=== PATIENT | male | born 1970 | race Caucasian/White ===

== ENCOUNTER 2020-06-30 07:13 | Outpatient (CLI) | payer BC, SELFPAY ==
--- NOTE | ~2020-06-30 | CT_ITS ---
EXAMINATION: CT chest wo con DATE: 06/30/2020 07:37 INDICATION: Aortic root dilation. TECHNIQUE: Computed tomography (CT) of the chest was performed without intravenous contrast. The dose -length product was 711.16 mGy-cm. Automated exposure control and iterative reconstruction technique were employed. COMPARISON: CT dated 06/19/2019 and 08/01/2018 FINDINGS: The aorta measures 5.1 cm at the sinuses of Valsalva. Midascending aorta measures 3.8 cm. M id descending thoracic aorta at the level of the left pulmonary artery measures 2.7 cm. No significan t pleural or pericardial effusion. Heart size is normal. No thoracic lymphadenopathy. Small hiatal he rnia. There is a 5 mm fissural nodule on the left unchanged, likely benign lymph node. Mild thoracic spondylosis. No acute osseous abnormality. No acute osseous abnormality. IMPRESSION: 1. Slightly increased dilation of the aortic root measuring 5.1 cm compared with 4.9 cm on prior stud y. Reviewed, dictated and finalized at location A. INSPECTOR IMPRESSION: 1. Slightly increased dilation of the aortic root measuring 5.1 cm compared wit h 4.9 cm on prior study.
== END 2020-06-30 07:14 | disposition home or self-care (01) ==
PROVIDERS: PCP Physician Assistant; Visit Provider Internal Medicine Cardiovascular Disease
DX: I77.810 Thoracic aortic ectasia (principal)
CPT/HCPCS: 71250

== ENCOUNTER 2020-11-17 11:29 | Outpatient (CLI) | payer BC, SELFPAY ==
--- NOTE | ~2020-11-17 | CT_ITS ---
EXAMINATION: CT abdomen pelvis wo con DATE: 11/17/2020 12:03 INDICATION: Abdominal bloating TECHNIQUE: Computed tomography (CT) of the abdomen and pelvis was performed without intravenous contr ast. The dose-length product (DLP) was 1325.90 mGy-cm. Automated exposure control and iterative recon struction technique were employed. COMPARISON: 06/19/2019 FINDINGS: Minimal dependent atelectasis is present in the lung bases. The heart size is normal. There is a small sliding hiatal hernia. Within the limitations of noncontrast examination, the liver, sple en, pancreas, and adrenal glands are normal. The gallbladder is surgically absent. There is a 3 mm no nobstructing stone of the right kidney. A 2 mm nonobstructing stone in the left kidney. There is also a 2.7 cm cyst of the right kidney. No pathologically enlarged abdominal or pelvic lymph nodes are id entified. There is no free intraperitoneal gas or evidence of bowel obstruction. The appendix is norm al. There is a greater than normal number of fluid-filled, nondistended small bowel loops. There is m ild lumbar spondylosis. A small fat-containing hernia is noted. IMPRESSION: 1. CT findings suggestive of enteritis. Reviewed, dictated and finalized at location A.
[2020-11-17 12:29] LABS: Basophils Percent Auto 0.3 % (0.2-1.2); Eosinophils Absolute Auto 0.6 K/mm3 (0-0.3); Eosinophils Percent Auto 5.8 % (0-4.4); Hematocrit 49.1 % (42.0-52.0); Hemoglobin 16.9 g/dL (14.0-18.0); Immature Granulocyte Absolute 0.04 K/mm3 (0.00-0.031); Immature Granulocyte Percent A 0.4 % (0-0.5); Lymphocytes Absolute Auto 2.52 K/mm3 (0.9-3.2); Lymphocytes Percent Auto 23.5 % (18.3-44.2); Mean Corpuscular HGB Conc 34.4 g/dl (32-36); Mean Corpuscular Hemoglobin 31.9 pg (26-34); Mean Corpuscular Volume 92.8 fl (80-100); Mean Platelet Volume 8.4 fl (7.4-10.4); Monocytes Absolute Auto 0.8 K/mm3 (0.1-0.6); Monocytes Percent Auto 7.3 % (2.6-8.5); Neutrophils Absolute Auto 6.8 K/mm3 (1.3-6.7); Neutrophils Percent Auto 62.7 % (45.5-73.1); Platelet Count Result 267 k/mm3 (150-375); Red Blood Count 5.29 M/mm3 (4.6-6.20); Red Cell Distribution Width 12.4 % (11.5-14.5); White Blood Count 10.7 K/mm3 (4.5-10.0)
[2020-11-17 12:44] LABS: Alanine Aminotransferase 34 U/L (4-50); Albumin Level 4.5 g/dL (3.5-5.1); Alkaline Phosphatase 77 U/L (38-126); Amylase 77 U/L (30-110); Anion Gap 7 mmol/L (8-16); Aspartate Amino Transferase 37 U/L (17-59); Blood Urea Nitrogen 20 mg/dL (9-20); Calcium 9.4 mg/dL (8.4-10.2); Carbon Dioxide 30 mmol/L (22-30); Chloride 102 mmol/L (98-107); Estimated Glomerular Filt Rate > 60; Glucose 97 mg/dL (75-110); Lipase 103 U/L (23-300); Sodium 139 mmol/L (137-145)
[2020-11-17 12:55] LABS: Troponin I < 0.012 ng/mL (0.000-0.034)
== END 2020-11-17 11:30 | disposition home or self-care (01) ==
PROVIDERS: PCP Physician Assistant; Visit Provider Physician Assistant
DX: R14.0 Abdominal distension (gaseous) (principal); R11.2 Nausea with vomiting, unspecified; N20.0 Calculus of kidney; M47.816 Spondylosis without myelopathy or radiculopathy, lumbar region
CPT/HCPCS: 36415; 74176; 80053; 82150; 83690; 84484; 85025

== ENCOUNTER 2020-12-20 09:32 | Outpatient (CLI) | payer BC, SELFPAY ==
--- NOTE | ~2020-12-20 | CT_ITS ---
EXAMINATION: CT diagnostic chest wo con DATE: 12/20/2020 09:59 INDICATION: Aortic root dilatation TECHNIQUE: Computed tomography (CT) of the chest was performed without intravenous contrast. The dose -length product (DLP) was 516.27 mGy-cm. Automated exposure control and iterative reconstruction tech [employer] were employed. COMPARISON: 06/30/2020, 06/19/2019 FINDINGS: The aorta measures 4.8 cm at the sinuses of Valsalva and 4.0 cm at the sinotubular junction , unchanged from prior examinations. The ascending aorta measures 3.7 cm at the level of the main pul monary artery. No dissection is identified on this noncontrast examination. No pathologically enlarge d thoracic lymph nodes are identified. The heart size is normal. The lungs are free of focal airspace opacities. There is mild dependent atelectasis. The gallbladder is surgically absent. There is no pl eural effusion or pneumothorax. IMPRESSION: 1. Stable aortic root dilatation. Reviewed, dictated and finalized at location B.
== END 2020-12-20 09:33 | disposition home or self-care (01) ==
PROVIDERS: PCP Physician Assistant; Visit Provider Nurse Practitioner Adult Health
DX: I77.810 Thoracic aortic ectasia (principal)
CPT/HCPCS: 71250

== ENCOUNTER 2021-03-10 08:08 | Observation (INO) | payer BC, SELFPAY ==
[2021-03-10] VITALS (21 sets, daily range): BP systolic 89–139; BP diastolic 54–108; PULSE 72–131; RESP 16–22; TEMP 35.8–36.9; O2SAT 95–100; BMI 31.7
--- NOTE | ~2021-03-10 | XR_ITS ---
EXAMINATION: XR chest 2V EXAM DATE: 03/10/2021 08:33 INDICATION: Atrial fibrillation. Shortness of breath. TECHNIQUE: Frontal and lateral projections of the chest obtained and reviewed. Comparison is made to prior examination from 01/26/2018. FINDINGS: The lungs are clear. There are no pleural effusions. The cardiomediastinal silhouette is within normal limits. There is no pneumothorax suspected. The bones and soft tissues are unremarkab le. There are cholecystectomy clips. IMPRESSION: No acute cardiopulmonary findings. Reviewed, dictated and finalized at location D.
--- NOTE | 2021-03-10 08:15 | ECG_ITS ---
Measurements Intervals [place] Rate: 129 P: 109 [place]: 137 QRS: 22 QRSD: 122 T: 37 QT: 287 QTc: 421 Interpretive Statements SINUS TACHYCARDIA INCOMPLETE RIGHT BUNDLE BRANCH BLOCK BASELINE ARTIFACT- III, AVR, AVL, AVF, V1-V3 ABNORMAL ECG Electronically Signed On 03-10-2021 8:43:53 CDT by Oleksandr Coleman D.O.
--- NOTE | 2021-03-10 08:21 | ED.ARRPALP ---
HPI - Arrhythmia/Palpitations General Chief Complaint: Arrhythmia/Palpitations Stated Complaint: elevated hr Time Seen by Provider: 03/10/21 08:19 Source: patient Related Data Allergies Allergy/AdvReac Type Severity Reaction Status Date / Time blue dye Allergy Unknown Hives / Verified 03/26/19 07:04 Red Face red dye Allergy Unknown Hives / Verified 03/26/19 07:04 Red Face yellow dye Allergy Unknown Hives / Verified 03/26/19 07:04 Red Face PROPAFENONE HCL Allergy Intermediate RASH Uncoded 03/26/19 07:04 Course Vital Signs Vital signs: Vital Signs Temperature 36.8 C 03/10/21 08:14 Pulse Rate 129 H 03/10/21 08:14 Respiratory Rate 16 03/10/21 08:14 Blood Pressure 139/97 H 03/10/21 08:14 Pulse Oximetry 99 03/10/21 08:14 Temperature 36.8 C 03/10/21 08:14 Pulse Rate 129 H 03/10/21 08:14 Respiratory Rate 16 03/10/21 08:14 Blood Pressure 139/97 H 03/10/21 08:14 Pulse Oximetry 99 03/10/21 08:14
[2021-03-10 08:31] LABS: Basophils Absolute Auto 0.1 K/mm3 (0.0-0.1); Basophils Percent Auto 0.6 % (0.2-1.2); Eosinophils Absolute Auto 0.4 K/mm3 (0-0.3); Eosinophils Percent Auto 4.4 % (0-4.4); Hematocrit 48.2 % (42.0-52.0); Hemoglobin 16.5 g/dL (14.0-18.0); Immature Granulocyte Absolute 0.03 K/mm3 (0.00-0.031); Immature Granulocyte Percent A 0.4 % (0-0.5); Lymphocytes Absolute Auto 2.21 K/mm3 (0.9-3.2); Lymphocytes Percent Auto 25.8 % (18.3-44.2); Mean Corpuscular HGB Conc 34.2 g/dl (32-36); Mean Corpuscular Hemoglobin 32.2 pg (26-34); Mean Corpuscular Volume 94.1 fl (80-100); Mean Platelet Volume 8.5 fl (7.4-10.4); Monocytes Absolute Auto 0.8 K/mm3 (0.1-0.6); Monocytes Percent Auto 9.3 % (2.6-8.5); Neutrophils Absolute Auto 5.1 K/mm3 (1.3-6.7); Neutrophils Percent Auto 59.5 % (45.5-73.1); Platelet Count Result 335 k/mm3 (150-375); Red Blood Count 5.12 M/mm3 (4.6-6.20); Red Cell Distribution Width 12.2 % (11.5-14.5); White Blood Count 8.6 K/mm3 (4.5-10.0)
--- NOTE | 2021-03-10 08:35 | ED.ARRPALP ---
HPI - Arrhythmia/Palpitations General Chief Complaint: Arrhythmia/Palpitations Stated Complaint: elevated hr Time Seen by Provider: 03/10/21 08:19 Source: patient Mode of arrival: ambulatory Limitations: no limitations History of Present Illness HPI narrative: Patient presents with palpitations started last night, history of A. fib, history of 2 cardiac ablation for atrial fibrillation last 1 was 2013. Patient denies any shortness of breath, chest pain or lightheadedness. Patient is fully vaccinated for COVID-19. Patient denies any fever, chills, nausea, vomiting Related Data Home Medications Medication Instructions Recorded Confirmed Glucosamine Chondroitin 03/10/21 amiloride-hydrochlorothiazide tablet 03/10/21 amitriptyline 03/10/21 atorvastatin 03/10/21 fish,bora,flax oils-om3,6,9no1 cap PO 03/10/21 [[place] 3-6-9] gabapentin 03/10/21 levothyroxine 03/10/21 losartan 03/10/21 omega-3 fatty acids PO 03/10/21 omeprazole 03/10/21 Allergies Allergy/AdvReac Type Severity Reaction Status Date / Time blue dye Allergy Unknown Hives / Verified 03/10/21 08:24 Red Face red dye Allergy Unknown Hives / Verified 03/10/21 08:24 Red Face yellow dye Allergy Unknown Hives / Verified 03/10/21 08:24 Red Face PROPAFENONE HCL Allergy Intermediate RASH Uncoded 03/10/21 08:24 Review of Systems Review of Systems: CONSTITUTIONAL: Denies fever, chills, or sweats. EYES: Denies visual changes, redness, or discharge. ENT: Denies rhinorrhea, congestion, sore throat, or otalgia. CARDIOVASCULAR: Denies chest pain, palpitations, or edema. RESPIRATORY: Denies cough or dyspnea. GASTROINTESTINAL: Denies abdominal pain, nausea, vomiting, or diarrhea. GENITOURINARY: Denies dysuria or hematuria. SKIN: Denies rash or itching. MUSCULOSKELETAL: Denies back pain, joint pain, or myalgia. NEUROLOGIC: Denies headache, numbness, or weakness. PSYCHIATRIC: Denies anxiety or depression. Exam Narrative: General appearance: Well-developed, well-nourished Skin: Normal color Head: Normocephalic, nontraumatic Eyes: Clear conjunctiva ENT: Oropharynx normal, ears normal, nose normal Neck: Supple, nontender Chest and respiratory: Airway patent, no respiratory distress, no accessory muscle use Heart: Irregular irregularity, tachycardia Abdomen: Soft, nontender, no organomegaly, quiet bowel sounds Vascular: Normal peripheral pulses, normal capillary refill. 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 fib with RVR at 129 bpm Labs, chest x-ray, ordered. Cardizem bolus and drip started Differential Diagnosis Differential diagnosis: Likely anxiety, sinus tachycardia, artial fibrillation and artial flutter Lab Data Result diagrams: 03/10/21 08:20 03/10/21 08:20 Labs: Lab Results 03/10/21 03/10/21 03/10/21 Range/Units 08:20 08:20 08:20 WBC 8.6 (4.5-10.0) K/mm3 RBC 5.12 (4.6-6.20) M/mm3 Hgb 16.5 (14.0-18.0) g/dL Hct 48.2
[2021-03-10] MEDS: dilTIAZem HCl INJ 25 MG/5 ML VIAL 10 MG IV PUSH (08:37)
[2021-03-10 08:41] LABS: INR 0.8; Prothrombin Time 11.3 Seconds (11.1-14.7)
[2021-03-10 08:42] LABS: Partial Thromboplastin Time 29.7 SECONDS (22.3-36.8)
[2021-03-10 08:43] LABS: Anion Gap 12 mmol/L (8-16); Blood Urea Nitrogen 29 mg/dL (9-20); Calcium 9.8 mg/dL (8.4-10.2); Carbon Dioxide 23 mmol/L (22-30); Chloride 104 mmol/L (98-107); Estimated CRCL calculation 107 ml/min; Estimated Glomerular Filt Rate > 60; Glucose 109 mg/dL (65-110); Sodium 139 mmol/L (137-145)
[2021-03-10 08:55] LABS: Troponin I < 0.012 ng/mL (0.000-0.034)
--- NOTE | 2021-03-10 09:50 | ECG_ITS ---
Measurements Intervals [place] Rate: 123 P: IL: 0 QRS: 24 QRSD: 100 T: 42 QT: 305 QTc: 437 Interpretive Statements ATRIAL FLUTTER/TACHYCARDIA WITH RAPID VENTRICULAR RESPONSE INCOMPLETE RIGHT BUNDLE BRANCH BLOCK ABNORMAL ECG Electronically Signed On 03-10-2021 12:19:07 CDT by Oleksandr Coleman D.O.
[2021-03-10] MEDS: ENOXAPARIN 120 MG/0.8 ML SYRINGE SUB-Q (10:05)
[2021-03-10] MEDS: LORazepam INJ (*CRX) 2 MG/ML VIAL 1 MG IV PUSH (10:05)
[2021-03-10 11:49] LABS: Troponin I < 0.012 ng/mL (0.000-0.034)
--- NOTE | 2021-03-10 14:12 | PM.CNCAR ---
Assessment and Plan Assessment and plan (1) Paroxysmal atrial fibrillation: Code(s): I48.0 - Paroxysmal atrial fibrillation Status: Acute Assessment and Plan: He is now back in atrial arrhythmia. Sudden onset at 6:20 a.m. this morning (2) Atrial flutter with rapid ventricular response: Code(s): I48.92 - Unspecified atrial flutter Status: Acute Assessment and Plan: Sudden onset at 6:20 a.m. this morning. Unfortunately he just ate lunch immediately before I saw the patient. He has received 1 dose of enoxaparin 1 milligram/kilogram and I am going to start him on Xarelto 20 mg daily. Hold aspirin while on Xarelto. He will be kept NPO after midnight for cardioversion only tomorrow. Will check a basic metabolic panel and magnesium level in a.m.. Diltiazem drip will be continued overnight but is unlikely to be effective. I suspect that the significant recent stresses that he has been dealing with may be the trigger to this latest atrial arrhythmia episode. (3) Essential hypertension: Code(s): I10 - Essential (primary) hypertension Status: Acute Assessment and Plan: Continue his home drug regimen (4) Hypothyroidism: Code(s): E03.9 - Hypothyroidism, unspecified Status: Acute Assessment and Plan: On replacement (5) Aortic root dilatation: Code(s): I77.810 - Thoracic aortic ectasia Status: Acute Assessment and Plan: As an outpatient, Is being closely followed with Q 6 month imaging History of Present Illness History of Present Illness Consult date/time: 03/10/21 14:12 Requesting physician: Jone Ingram MD Consult reason: atrial fibrillation Reason For Visit: A fib with RVR Narrative: Date of service 03/10/2021 Reason consultation: Atrial fibrillation Requesting provider Dr. Ingram History: Patient is a 51-year-old male patient of mine who has a longstanding history of atrial arrhythmias. He also has an ascending aortic aneurysm for which I have also been following. He had a JACINTA guided cardioversion in November 2012. He had atrial fibrillation ablation in 2007. Another cardioversion 2010. Two thousand fourteen he developed symptomatic atrial fibrillation and underwent another cardioversion and discharged on on flecainide and Xarelto. He underwent another AFib ablation in November 2013. He was eventually taken off of his flecainide and Xarelto as his last ablation was successful. He has had in palpitations since that time but nothing sustained. This morning however at 6:20 a.m. he had a abrupt onset of palpitations tachycardia. He was also sweaty and short of breath. He had some tingling in his fingers as well in addition to some dizziness. He has been under more emotional stress lately due to the of his mother as well as some issues with his brother. He stated that he had a few palpitations yesterday evening and seemed a bit more strong and unusual for him but knows that he did not go into atrial fibrillation until 620 this a.m.. He came to the hospital was found to be in atrial flutter with rapid ventricular response. He has been started on diltiazem drip without much benefit and his heart rate. He otherwise denies any chest pain, syncope, presyncope, paroxysmal nocturnal dyspnea, orthopnea, edema. Review of Systems Review of Systems: All systems reviewed & are unremarkable except as noted in HPI and below Constitutional: Constitutional: Denies weakness Eyes: Eyes: Denies blurry vision ENT: Reports Normal hearing present Cardiovascular: Cardiovascular: Denies chest pain and Reports palpitations Respiratory: Respiratory: Reports dyspnea Gastrointestinal: Gastrointestinal: Denies abdominal pain Genitourinary: Genitourinary: Denies dysuria Musculoskeletal: Musculoskeletal: Denies back pain and Denies neck pain Integumentary/Breasts: Skin/Breast: Denies dry skin Neurologic: Denies headache(s) Psychiatric: Psychiatri
--- NOTE | 2021-03-10 15:30 | PM.IMHP ---
H&P: HPI History of Present Illness Date/Time: 03/10/21 15:30 Chief Complaint: Palpitations. Narrative: This is a very pleasant 51-year-old male with history of atrial fibrillation, hypothyroidism, and obstructive sleep apnea presented to the emergency department earlier today via private vehicle for evaluation of palpitations. He has had issues with atrial fibrillation since age 37 and has had 2 cardiac ablations, the most recent being in 2013. Since that time he will have occasional fleeting episodes of atrial fibrillation lasting a few seconds perhaps once a week or so. Last evening and overnight he did have brief palpitations which resolved spontaneously however they have been consistent since about 06:30. Associated symptoms include diaphoresis, shortness of breath, and overwhelming fatigue. He was found to be in atrial flutter with rapid ventricular response and is been started on a Cardizem drip with perhaps some improvement in his rate. Plans are for cardioversion tomorrow if he does not convert overnight. Patient reports increasing stress over the last couple of weeks due to the of his mother and issues with his sibling and he believes that is a contributing factor. He states compliance with his CPAP. TSH was within normal limits relatively recently. No significant alcohol use. He denies syncope, near syncope, chest pain, and pleuritic pain. Review of Systems Review of Systems: 12 systems were reviewed with pertinent positives and negatives as per HPI. No fever or chills. He had abdominal bloating and diarrhea several weeks ago and in fact had an EGD fairly recently which showed evidence of reflux and a short section of Bucio esophagus. Except as document, all other systems were reviewed and are negative. [facility] Past Medical History Medical History (Updated 03/10/21 @ 20:36 by Thelma Looney PA-C) Aortic root dilatation Monitored closely as an outpatient. Essential hypertension History of kidney stones Hypothyroidism Obstructive sleep apnea on CPAP Paroxysmal atrial fibrillation Status post cardiac ablation in 2007 in 2013. Surgical History Surgical History (Updated 03/10/21 @ 20:36 by Thelma Looney PA-C) History of arthroscopy of right knee History of cholecystectomy History of cystoscopy History of sinus surgery History of tonsillectomy History of wisdom tooth extraction Status post LASIK surgery of both eyes Family History Family History Father Arthritis Asthma Malignant neoplasm of prostate Mother Lung cancer Myocardial infarct Manic depression Sibling Hypertension Social History Social History (Updated 03/10/21 @ 20:37 by Thelma Looney PA-C) Social History: The patient lives in [place] with his . They have 1 son who recently moved to [place] for college. Non-smoker. Drinks perhaps 1 alcoholic beverage a week. No illicit substance use. 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 Designates his Sofia as his surrogate decision-maker. CODE STATUS: Full code. Meds Home Medications and Allergies Home Medications Medication Instructions Recorded Confirmed Type Glucosamine Chondroitin 1 tablet DAILY 03/10/21 03/10/21 History amiloride-hydrochlorothiazide 1 tablet DAILY 03/10/21 03/10/21 History amitriptyline 12.5 mg PO HS 03/10/21 03/10/21 History aspirin 325 mg PO DAILY 03/10/21 03/10/21 History atorvastatin 20 mg PO DAILY 03/10/21 03/10/21 History gabapentin 200 mg PO HS 03/10/21 03/10/21 History levothyroxine 150 mcg PO DAILY 03/10/21 03/10/21 History losartan 25 mg PO DAILY 03/10/21 03/10/21 History omega-3 fatty acids 1 cap PO DAILY 03/10/21 03/10/21 History omeprazole 40 mg PO HS 03/10/21 03/10/21 History Allergies Allergy/AdvReac Type Severity Reaction Status Date / Time blue dye Allergy Unknown Hives / Verified 03/10/21 08:24 Red Face red dye Allergy Unknown Hives / Verified 0
--- NOTE | 2021-03-10 16:15 | ADMGEN ---
This patient, Jaison Pineda, was admitted to IMU Room 206-01 at 1125. Patient/family oriented to hospital policies and general routines including ID bracelet, bed and alarms, visiting hours, pain management, procedures, bathroom and other care routines, personal items, smoking policy, room service/diet, and visiting hours. Information on how to activate the Rapid Response Team has been discussed. Patient/Family are encouraged to report perceived risks to care and to ask questions if they do not understand what they are told or what they should do.
[2021-03-10 16:39] LABS: Troponin I < 0.012 ng/mL (0.000-0.034)
[2021-03-10] MEDS: RIVAROXABAN 20 MG TABLET PO (17:13)
[2021-03-10 21:21] LABS: Alanine Aminotransferase 30 U/L (4-50); Albumin Level 4.2 g/dL (3.5-5.1); Alkaline Phosphatase 78 U/L (38-126); Aspartate Amino Transferase 31 U/L (17-59); Bilirubin,Total 0.8 mg/dL (0.2-1.3); Magnesium 1.8 mg/dL (1.6-2.3)
--- NOTE | 2021-03-10 21:30 | PC.NURSE ---
Evening home meds resumed. Patient stated he took meds from home already. Instructed patient to refrain from taking home meds while in the hospital due to risk for double dosing or in case doctors wanted to alter or change medication. Pt agreed.
[2021-03-11] VITALS (12 sets, daily range): BP systolic 104–114; BP diastolic 61–65; PULSE 49–82; RESP 14–16; TEMP 36.4–36.5; O2SAT 98–100
[2021-03-11 00:53] LABS: Free T4 Free Thyroxine 1.03 ng/mL (0.78-2.19)
--- NOTE | 2021-03-11 06:21 | ECG_ITS ---
Measurements Intervals [place] Rate: 55 P: 71 [place]: 177 QRS: 49 QRSD: 108 T: 52 QT: 437 QTc: 420 Interpretive Statements SINUS BRADYCARDIA INCOMPLETE RIGHT BUNDLE BRANCH BLOCK BORDERLINE ECG Electronically Signed On 03-11-2021 14:17:20 CDT by Oleksandr Coleman D.O.
[2021-03-11] MEDS: LEVOTHYROXINE SODIUM 150 MCG TABLET PO (06:36)
--- NOTE | 2021-03-11 08:33 | PM.PNCARD ---
Progress Note: A&P Additional Plan 51-year-old man with: History of atrial fibrillation with 2 previous ablation procedures now with an episode of symptomatic atrial flutter. He has spontaneously converted back to sinus rhythm this morning and is asymptomatic. The plan for today was to perform an electrical cardioversion and discharge him for outpatient follow-up. Obviously the DC cardioversion is no longer indicated. He should be discharged to home on Xarelto and follow up with my partner in the office, Dr. Ramirez. Murali Cobb MD [facility] Subjective Date/time seen: Date of service: 03/11/21 08:33 Interval history: Follow-up visit in this 51-year-old man with: History of atrial arrhythmias atrial fibrillation in the past status post 2 previous catheter ablation procedures. Patient presented with symptomatic atrial flutter this time was placed on intravenous diltiazem. Early this morning his rhythm spontaneously converted back to sinus and the diltiazem has been discontinued. He has now been started on systemic anticoagulation with Xarelto. He is asymptomatic this morning and feels well. Exam Const: General: comfortable and no acute distress HENMT: Mouth: Yes moist mucous membranes Eyes: Sclera: sclerae normal Pupils: Equal, round and reactive pupils present Neck: Neck: supple and no JVD Resp: Effort & Inspection: normal respiratory effort Auscultation: clear to auscultation bilaterally Cardio: Rate: regular rate Rhythm: regular rhythm Other: No murmur no gallop no rub GI: GI Palp: Yes Soft to palpation Auscultation: normal bowel sounds Skin: General skin exam: normal color Neuro: Cognition (Neuro): normal cognition Extrem: General: normal to inspection Objective Data Vital Signs Vital Signs: Vital Signs - 24 hr 03/10/21 08:39 03/10/21 09:09 03/10/21 09:39 Temperature Pulse Rate 128 H 129 H 130 H Respiratory Rate Blood Pressure 118/94 H 132/95 H 119/108 H Pulse Oximetry 03/10/21 09:53 03/10/21 11:06 03/10/21 11:29 Temperature Pulse Rate 122 H 127 H Respiratory Rate 16 16 Blood Pressure 109/79 113/88 Pulse Oximetry 100 100 97 03/10/21 11:57 03/10/21 12:00 03/10/21 14:00 Temperature 35.8 C L Pulse Rate 126 H 131 H 111 H Respiratory Rate 22 H Blood Pressure 118/94 H Pulse Oximetry 98 03/10/21 16:00 03/10/21 18:00 03/10/21 19:57 Temperature 36.9 C 36.4 C Pulse Rate 111 H 98 100 Respiratory Rate 18 16 Blood Pressure 102/63 111/54 L Pulse Oximetry 98 95 03/10/21 20:00 03/10/21 21:10 03/10/21 21:25 Temperature Pulse Rate 98 Respiratory Rate Blood Pressure 89/62 L 101/70 Pulse Oximetry 03/10/21 21:30 03/10/21 21:40 03/10/21 21:56 Temperature Pulse Rate 78 92 Respiratory Rate Blood Pressure 103/68 Pulse Oximetry 98 03/10/21 22:00 03/10/21 23:34 03/11/21 00:00 Temperature 36.6 C Pulse Rate 72 73 76 Respiratory Rate 16 Blood Pressure 98/57 L Pulse Oximetry 97 03/11/21 02:00 03/11/21 02:05 03/11/21 02:14 Temperature Pulse Rate 82 77 Respiratory Rate Blood Pressure 104/61 Pulse Oximetry 98 03/11/21 03:56 03/11/21 04:00 03/11/21 04:31 Temperature 36.5 C Pulse Rate 77 82 75 Respiratory Rate 14 Blood Pressure 105/65 Pulse Oximetry 99 03/11/21 06:00 03/11/21 06:19 03/11/21 06:59 Temperature 36.4 C Pulse Rate 72 49 L 55 L Respiratory Rate 16 Blood Pressure 114/62 Pulse Oximetry 100 Intake/Output Intake/Output: Intake & Output 03/08/21 03/09/21 03/10/21 03/11/21 23:59 23:59 23:59 23:59 Intake Total 580 695 Output Total 850 700 Balance -270 -5 Meds/Results Medications: Active Medications Generic Name Dose Route Start Last Admin Trade Name Terrance PRN Reason Stop Dose Admin Amiloride HCl 5 mg 03/11/21 09:00 Amiloride Hcl 5 Mg Tablet BY MOUTH 04/10/21 08:59 DAILY DAVIE Amitriptyline HCl 12.5 mg 03/10/21 21:00 03/10/21
[2021-03-11] MEDS: LOSARTAN POTASSIUM 25 MG TABLET PO (08:36)
[2021-03-11] MEDS: hydroCHLOROthiazide 25 MG TABLET 50 MG BY MOUTH (08:36)
[2021-03-11] MEDS: ATORVASTATIN 20 MG TABLET PO (08:36)
[2021-03-11] MEDS: aMILoride HCL 5 MG TABLET BY MOUTH (08:36)
[2021-03-11] MEDS: OMEGA 3 POLYUNSAT FATTY ACIDS 1 GM CAP PO (08:37)
--- NOTE | 2021-03-11 10:32 | PM.DS ---
DS: Admitting Diagnosis Discharge Date 03/11/21 Admitting Diagnosis Palpitations DS: Discharge Diagnosis Discharge Diagnosis (1) Atrial flutter with rapid ventricular response: Code(s): I48.92 - Unspecified atrial flutter Status: Acute Assessment and Plan: This is a 51-year-old male with history of atrial fibrillation with multiple ablations in the past, hypothyroidism, and obstructive sleep apnea presented to the emergency department with palpitations. He continues to have a few short episodes of atrial fibrillation lasting only a few seconds, but this episode began at 06:30 and was consistent. He has been under increased stress lately thinking it is causing his Afib. Upon arrival to ER, he was found to be in atrial flutter with rapid ventricular response and is been started on a Cardizem drip with improvement of rate and he converted overnight. He is now in NSR. TSH was within normal limits relatively recently. Cardiology recommended starting Xarelto and discharge to follow up with Dr. Ramirez for further evaluation. Patient understands and agrees with the plan all questions answered. (2) Paroxysmal atrial fibrillation: Code(s): I48.0 - Paroxysmal atrial fibrillation Status: Acute (3) Essential hypertension: Code(s): I10 - Essential (primary) hypertension Status: Acute (4) Hypothyroidism: Code(s): E03.9 - Hypothyroidism, unspecified Status: Acute (5) Obstructive sleep apnea on CPAP: Code(s): G47.33 - Obstructive sleep apnea (adult) (pediatric); Z99.89 - Dependence on other enabling machines and devices Status: Acute DS: Summary Hospital Course Hospital Course: See above Status at Discharge Cognitive/behavioral status at discharge: Stable, improved. Time Spent with Patient Time attestation: Total time spent providing and/or coordinating discharge services: 37 Time spent: Greater than 30 minutes Exam Narrative: General: 51-year-old man sitting up in bed eating breakfast. Appears comfortable. In no acute distress. Skin: No jaundice or cyanosis. Good skin turgor. Neck: Full range of motion. Supple. Respiratory: Lungs are clear to auscultation bilaterally. No bony chest wall tenderness. Cardiovascular: The heart has a regular rate and rhythm without murmur. Lower extremities: No lower extremity edema. Distal pulses are easily palpated. No calf tenderness to palpation. Gastrointestinal: The abdomen is soft, nontender and nondistended with active bowel sounds. Psychiatric: Lucid and oriented. Memory intact. Neurologic: No focal deficits. Speech is clear. No facial drooping. DS: Data Data Completed and Pending Labs on day of discharge: Labs from last 24 hours 03/10/21 03/10/21 03/10/21 21:05 21:05 15:56 Magnesium 1.8 Total Bilirubin 0.8 Direct Bilirubin 0.0 AST 31 ALT 30 Alkaline Phosphatase 78 Troponin I < 0.012 Total Protein 7.0 Albumin 4.2 Free T4 1.03 03/10/21 11:05 Magnesium Total Bilirubin Direct Bilirubin AST ALT Alkaline Phosphatase Troponin I < 0.012 Total Protein Albumin Free T4 Discharge Plan Discharge Attending physician on discharge: Will Cast Consulting providers: Baldemar Ramirez Discharging Clinician: Heike Jerez Anticipated Discharge Date/Time: 03/11/21 10:32 Patient Disposition: Home, Self-Care Activity: as tolerated Diet: heart healthy Discharge Instructions: Heike eJrez PA-C Hospitalist You were admitted into the hospital and found to be in atrial fibrillation with rapid ventricular response. You were placed on an IV diltiazem drip which converted you back into normal sinus rhythm. The cardiology team have evaluated you and feel your stable for discharge at this time. Due to the recurrence of your atrial fibrillation they recommend starting Xarelto
== END 2021-03-11 11:25 | disposition home or self-care (01) ==
LOC: ANHED 09:49 → ANHIMU 10:40
PROVIDERS: Physician Assistant; Admitting Provider Internal Medicine; Emergency Provider Emergency Medicine; PCP Physician Assistant; Visit Provider Internal Medicine
DX: I48.92 Unspecified atrial flutter (principal); I48.0 Paroxysmal atrial fibrillation; R00.2 Palpitations; E03.9 Hypothyroidism, unspecified; G47.33 Obstructive sleep apnea (adult) (pediatric); I10 Essential (primary) hypertension; Z99.89 Dependence on other enabling machines and devices
CPT/HCPCS: 36415; 71046; 80048; 80076; 83735; 84439; 84443; 84484; 85025; 85610; 85730; 93005; 96365; 96366; 96372; 96375; 99285; A9270; G0378; J1650; J2060

== ENCOUNTER 2021-11-23 15:06 | Outpatient (CLI) | payer BC, SELFPAY ==
--- NOTE | ~2021-11-23 | XR_ITS ---
EXAMINATION: XR abdomen/kub 1V INDICATION: Calculus of kidney TECHNIQUE: Supine views of the abdomen were obtained on 2 radiographs. COMPARISON: 08/27/2018 FINDINGS: No urolithiasis is identified. The bowel gas pattern is normal. There is a moderate volume of colonic stool. Surgical clips in the right upper quadrant are likely from prior cholecystectomy. A phlebolith is noted in the left pelvis. IMPRESSION: 1. No urolithiasis identified. Reviewed, dictated and finalized at location F.
== END 2021-11-23 15:07 | disposition home or self-care (01) ==
PROVIDERS: PCP Physician Assistant; Visit Provider Internal Medicine Nephrology
DX: N20.0 Calculus of kidney (principal)
CPT/HCPCS: 74018

== ENCOUNTER 2021-12-13 15:01 | Outpatient (CLI) | payer BC, SELFPAY ==
--- NOTE | ~2021-12-13 | CT_ITS ---
EXAMINATION:CT diagnostic chest wo con DATE: 12/13/2021 15:29 INDICATION: Aortic root dilatation. TECHNIQUE: Computed tomography (CT) of the chest was performed without intravenous contrast. Automate d exposure control and iterative reconstruction technique were employed. The dose-length product (DLP ) was 730.64 mGy-cm. COMPARISON: Chest CT 12/20/2020 FINDINGS: There is mild scarring at the lung apices. There is mild atelectasis bilaterally. There is a 5 mm nodule at left major fissure without change, likely benign. No pleural effusion. There is left atrial enlargement of the heart. No pericardial effusion. There is a small sliding hiatal hernia. Th e aorta measures 4.7 cm at the sinuses of Valsalva, 4.0 cm at the sinotubular junction, 3.6 cm in the mid ascending aorta, 2.6 cm at the aortic isthmus, and 2.5 cm in the mid descending aorta. There is mild thoracic spondylosis. There is mild chronic anterior wedging of T12 vertebral body. IMPRESSION: 1. Aortic root dilatation measuring up to 4.7 cm at the sinuses of Valsalva, stable from 12/20/2020. Reviewed, dictated and finalized at location A. IMPRESSION: 1. Aortic root dilatation measuring up to 4.7 cm at the sinuses of Valsalva, st able from 12/20/2020.
== END 2021-12-13 15:02 | disposition home or self-care (01) ==
PROVIDERS: PCP Physician Assistant; Visit Provider Internal Medicine Cardiovascular Disease
DX: I77.810 Thoracic aortic ectasia (principal); K44.9 Diaphragmatic hernia without obstruction or gangrene; M47.814 Spondylosis without myelopathy or radiculopathy, thoracic region
CPT/HCPCS: 71250

== ENCOUNTER 2022-12-05 17:51 | Outpatient (CLI) | payer BC, SELFPAY ==
--- NOTE | ~2022-12-05 | XR_ITS ---
XR abdomen/kub 1V 12/05/2022 19:17 INDICATION: Kidney stones. TECHNIQUE: KUB COMPARISON: 12/17/2016 FINDINGS: Bowel gas pattern is normal. There are cholecystectomy clips. There is no evidence of free air, mass, organomegaly, ascites or obstruction. No abnormal calculi are seen. There is a left pelvi c phlebolith. The bones appear intact. IMPRESSION: 1: No acute abdominal abnormality identified. Reviewed, dictated and finalized at location L.
== END 2022-12-05 17:52 | disposition home or self-care (01) ==
LOC: ANHIMG 17:54
PROVIDERS: PCP Physician Assistant; Visit Provider Internal Medicine Nephrology
DX: G47.33 Obstructive sleep apnea (adult) (pediatric) (principal); I10 Essential (primary) hypertension; N20.0 Calculus of kidney
CPT/HCPCS: 74018

== ENCOUNTER 2023-01-02 14:27 | Outpatient (CLI) | payer BC, SELFPAY ==
--- NOTE | ~2023-01-02 | CT_ITS ---
EXAMINATION: CT diagnostic chest wo con DATE: 01/02/2023 15:00 INDICATION: Aortic root dilatation TECHNIQUE: Computed tomography (CT) of the chest was performed without intravenous contrast. The dose -length product (DLP) was 534.10 mGy-cm. Automated exposure control and iterative reconstruction tech [employer] were employed. COMPARISON: 12/13/2021 FINDINGS: The aorta measures 4.7 cm at the sinuses of Valsalva and 3.7 cm at the level of the main pu lmonary artery. There is mild dependent atelectasis. No pleural effusion or pneumothorax. No patholog ically enlarged thoracic lymph nodes are identified. The heart size is normal. Changes of cholecystec stella are noted. There is mild thoracic spondylosis. IMPRESSION: 1. Stable aortic root dilatation measuring up to 4.7 cm at the sinuses of Valsalva. Reviewed, dictated and finalized at location B. IMPRESSION: 1. Stable aortic root dilatation measuring up to 4.7 cm at the sinuses of Valsa lva.
== END 2023-01-02 14:28 | disposition home or self-care (01) ==
PROVIDERS: PCP Physician Assistant; Visit Provider Internal Medicine Cardiovascular Disease
DX: I77.810 Thoracic aortic ectasia (principal)
CPT/HCPCS: 71250

== ENCOUNTER → 2023-07-22 17:13 | Outpatient (CLI) | payer BC, SELFPAY ==
--- NOTE | ~2023-07-22 | XR_ITS ---
EXAMINATION: XR chest 2V Exam Date/Time: 07/22/2023 17:15 MEAT LUGGER HISTORY: COUGH, HX OF TWO HEART ABLASION SURGERY Comparison: 03/10/2021. RESULT: Lines, tubes, and devices: None. Lungs and pleura: Clear. Cardiomediastinal silhouette: Stable. Other: No acute osseous or upper abdominal finding. IMPRESSION: No acute cardiopulmonary process. Reviewed, dictated and finalized at location K. LUGGER
== END ==
PROVIDERS: PCP Physician Assistant; Visit Provider Physician Assistant
DX: R05.9 Cough, unspecified (principal)
CPT/HCPCS: 71046

== ENCOUNTER 2023-12-30 15:26 | Outpatient (CLI) | payer BC, SELFPAY ==
--- NOTE | ~2023-12-30 | XR_ITS ---
EXAMINATION: XR abdomen/kub 1V DATE: 12/30/2023 15:43 INDICATION: Kidney stone. TECHNIQUE: A supine view of the abdomen on 2 radiographs was obtained. COMPARISON: Abdomen radiograph 12/05/2022, CT abdomen and pelvis 12/18/2020 FINDINGS: There are no dilated loops of bowel. There is a large volume of stool in the colon. Surgica l clips in the right upper quadrant are likely from cholecystectomy. There is a phlebolith in left pe lvis. There is no visible urolithiasis. IMPRESSION: 1. No visible urolithiasis. Reviewed, dictated and finalized at location E. IMPRESSION: 1. No visible urolithiasis.
== END 2023-12-30 15:27 | disposition home or self-care (01) ==
LOC: ANHIMG 15:27
PROVIDERS: PCP Physician Assistant; Visit Provider Internal Medicine Nephrology
DX: N20.0 Calculus of kidney (principal)
CPT/HCPCS: 74018

== ENCOUNTER 2024-01-29 15:52 | Outpatient (CLI) | payer BC, SELFPAY ==
--- NOTE | ~2024-01-29 | CT_ITS ---
CT Scan of the Chest without Contrast: Clinical Indication: Aortic root dilatation COMPARISON: 01/02/2023 Technique: Contiguous sections were acquired throughout the chest without intravenous contrast. Dose reduction technique was used on this scan by utilizing automated exposure control and iterative recon struction technique. The dose-length product (DLP) was 783.17 mGy-cm. Findings: There is no evidence of any significant mediastinal, hilar or axillary lymphadenopathy. The mediastin al soft tissues appear normal. Stable dilatation of the aortic root to 4.7 cm in diameter. There is no evidence of pleural or pericardial effusion. The lungs are clear. No pulmonary nodules or infiltrates are noted. Images through the upper abdomen reveal punctate bilateral nonobstructing renal stones. Impression: Stable dilatation of the aortic root to 4.7 cm. Reviewed, dictated and finalized at [facility]. Impression: Stable dilatation of the aortic root to 4.7 cm.
== END 2024-01-29 15:53 | disposition home or self-care (01) ==
LOC: ANHIMG 15:52
PROVIDERS: PCP Physician Assistant; Visit Provider Internal Medicine Cardiovascular Disease
DX: I77.810 Thoracic aortic ectasia (principal)
CPT/HCPCS: 71250

== ENCOUNTER 2024-05-30 06:56 | Emergency (ER) | payer BC, SELFPAY ==
--- NOTE | ~2024-05-30 | XR_ITS ---
EXAMINATION: XR chest 2V DATE: 05/30/2024 09:04 INDICATION: Cough. Shortness of breath. TECHNIQUE: Frontal and lateral views of the chest were obtained. COMPARISON: Chest 2 views 07/22/2023 FINDINGS: There is no pneumonia, pleural effusion, or pneumothorax. The heart size is normal. There i s mild chronic anterior wedging of T12 vertebral body. IMPRESSION: 1. No acute cardiopulmonary disease. Reviewed, dictated and finalized at location A. ER REPAIR TECHNICIAN
[2024-05-30 06:59] VITALS: BP 126/74; PULSE 86; RESP 20; TEMP 36.8; O2SAT 94
--- NOTE | 2024-05-30 07:56 | ECG_ITS ---
Test Date: 2024-05-30 07:53:40 Measurements Intervals [place]kins Rate: 73 P: 62 [place]: 189 QRS: 14 QRSD: 111 T: 32 QT: 393 QTc: 433 Interpretive Statements SINUS RHYTHM MODERATE INTRAVENTRICULAR CONDUCTION DELAY [110+ ms QRS DURATION] No previous ECG available for comparison Electronically Signed On 05-30-2024 14:45:51 SENIOR PROCUREMENT SPECIALIST by Rafy Napier M.D.
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
[2024-05-30 09:13] LABS: Alveolar/Arterial O2 Gradient 2.2 mmHg; Base Excess ABG 2.5 mEq/l (+/-2.0); Carboxyhemoglobin 0.9 % THb (0-2.0); Fractional Inspired Oxygen 21 %; HCO3 ABG 24.3 mEq/l (22.0-26.0); Methemoglobin ABG 0.2 %THb (0-1.5); Oxygen Content ABG 23.4 %vol (16.0-22.0); Oxygen Saturation ABG 98.5 % (95.0-100.0); Oxyhemoglobin 97.1 % THb (90.0-100.0); PCO2 ABG 30.4 mmHg (35.0-45.0); PO2 ABG 111.1 mmHg (80.0-100.0); PO2 FiO2 Ratio Arterial Blood 5.29 %; Reduced Hemoglobin 1.8 %THb (0-5.0); Total Hemoglobin 17.1 g/dL (12.0-18.0)
[2024-05-30 09:15] LABS: Modified Allen's Test Pass; Site Drawn RIGHT RADIAL
[2024-05-30 09:16] LABS: Device ROOM AIR
--- NOTE | 2024-05-30 10:07 | PCRCNOTE ---
ABG ordered at 0843. When I arrived to do the ABG pt was leaving with radiology. I came back a few minutes later and pt was using the urnal. ABG was drawn at 0909.
[2024-05-30 10:12] VITALS: BP 108/72; PULSE 75; RESP 17; TEMP 36.5; O2SAT 97; O2SAT 98
[2024-05-30 10:19] LABS: Basophils Percent Auto 0.2 % (0.2-1.2); Eosinophils Absolute Auto 0.1 K/mm3 (0-0.3); Eosinophils Percent Auto 0.6 % (0-4.4); Hematocrit 46.5 % (42.0-52.0); Hemoglobin 16.2 g/dL (14.0-18.0); Immature Granulocyte Absolute 0.07 K/mm3 (0.00-0.031); Immature Granulocyte Percent A 0.5 % (0-0.5); Lymphocytes Absolute Auto 1.47 K/mm3 (0.9-3.2); Mean Corpuscular HGB Conc 34.8 g/dl (32-36); Mean Corpuscular Hemoglobin 33.1 pg (26-34); Mean Corpuscular Volume 94.9 fl (80-100); Mean Platelet Volume 8.6 fl (7.4-10.4); Monocytes Percent Auto 7.1 % (2.6-8.5); Neutrophils Absolute Auto 10.8 K/mm3 (1.3-6.7); Neutrophils Percent Auto 80.6 % (45.5-73.1); Platelet Count Result 242 k/mm3 (150-375); Red Cell Distribution Width 12.2 % (11.5-14.5); White Blood Count 13.4 K/mm3 (4.5-10.0)
[2024-05-30 10:25] LABS: Lactic Acid Reflex 1.5 mmol/L (0.7-2.0)
[2024-05-30 10:26] LABS: Anion Gap 4 mmol/L (4-12); Blood Urea Nitrogen 25 mg/dL (9-20); Calcium 9.3 mg/dL (8.4-10.2); Carbon Dioxide 33 mmol/L (22-30); Chloride 102 mmol/L (98-107); Estimated CRCL calculation 58 ml/min; Estimated Glomerular Filt Rate > 60; Glucose 119 mg/dL (65-110); Sodium 139 mmol/L (137-145)
[2024-05-30 11:24] LABS: Fractional Inspired Oxygen 21 %; HCO3 VBG 29.3 mEq/l (24.0-30.0); PCO2 VBG 49.1 mmHg (42.0-48.0); PO2 VBG 27.4 mmHg (35.0-45.0); pH VBG 7.394 (7.300-7.400)
[2024-05-30 11:25] LABS: Device ROOM AIR
[2024-05-30 11:54] VITALS: BP 126/90; PULSE 69; RESP 17; O2SAT 96
== END 2024-05-30 11:56 | disposition home or self-care (01) ==
PROVIDERS: Emergency Provider Student in an Organized Health Care Education/Training Program; PCP Physician Assistant
DX: T59.811A Toxic effect of smoke, accidental (unintentional), initial encounter (principal); D72.829 Elevated white blood cell count, unspecified; I77.819 Aortic ectasia, unspecified site; I10 Essential (primary) hypertension; E03.9 Hypothyroidism, unspecified; G47.33 Obstructive sleep apnea (adult) (pediatric); I48.0 Paroxysmal atrial fibrillation; Z87.442 Personal history of urinary calculi; Z90.49 Acquired absence of other specified parts of digestive tract; I45.9 Conduction disorder, unspecified; Z79.899 Other long term (current) drug therapy
CPT/HCPCS: 36415; 36600; 71046; 80048; 82375; 82803; 82805; 83050; 83605; 85018; 85025; 93005; 99284

== ENCOUNTER → 2024-06-03 16:04 | Outpatient (CLI) | payer BC, SELFPAY ==
--- NOTE | ~2024-06-03 | XR_ITS ---
EXAMINATION: XR hip BI 2V w AP pelvis DATE: 06/03/2024 16:28 INDICATION: Pelvic pain. TECHNIQUE: An anteroposterior view of the pelvis and 2 views of each hip were obtained. COMPARISON: None. FINDINGS: Alignment is normal. No fracture. There is mild osteoarthritis of the hips. IMPRESSION: 1. Mild osteoarthritis of the hips. Reviewed, dictated and finalized at location A. UT FARMER
--- NOTE | ~2024-06-03 | XR_ITS ---
EXAMINATION: XR sacrum coccyx min 2V DATE: 06/03/2024 16:28 INDICATION: Sacrococcygeal pain. TECHNIQUE: 3 views of the sacrum and coccyx were obtained. COMPARISON: Lumbar spine radiograph 12/31/2017 FINDINGS: Alignment is normal. No fracture. The sacroiliac joints are normal. There is moderate lumba r spondylosis. IMPRESSION: 1. No fracture. Reviewed, dictated and finalized at location A. NG MACHINE ADJUSTER IMPRESSION: 1. No fracture.
== END ==
PROVIDERS: PCP Physician Assistant; Visit Provider Physician Assistant
DX: M16.0 Bilateral primary osteoarthritis of hip (principal); M53.3 Sacrococcygeal disorders, not elsewhere classified
CPT/HCPCS: 72220; 73521

== ENCOUNTER 2025-01-05 15:13 | Outpatient (CLI) | payer BC, SELFPAY ==
--- NOTE | ~2025-01-05 | XR_ITS ---
XR abdomen/kub 1V 01/05/2025 15:27 INDICATION: Renal stones TECHNIQUE: KUB COMPARISON: None FINDINGS: Bowel gas pattern is normal. Moderate colonic fecal loading. There is no evidence of free a ir, mass, organomegaly, ascites or obstruction. No abnormal calculi are seen. The bones appear inta ct. IMPRESSION: 1: No acute abdominal abnormality identified. Reviewed, dictated and finalized at location B.
--- OUTSIDE RECORDS SUMMARY | 2025-01-05 15:17 | XMS_ITS | Encounter Summary ---
Author Organization [facility] Healthcare Address [address] [place] [address] Care Team Providers Care Cloth Spreader Screen Printing Name Role Phone Carmen Lindsay Primary Care Provider [phone] Carmen Lindsay Unavailable [phone] Jhonny Colvin MD Unavailable Baldemar Ramirez MD Unavailable Joss Lopez MD Unavailable [phone] Encounter Details Date Type Department Care Team (Late st Contact Info) Description 12/30/2023 Orders Only [facility] [place] [facility] Health Information Management [address] [place] [id number] Scanning, Provider Social History Tobacco Use Types Packs/Day Years Used Date Smoking Tobacco: Never Smokeless Tobacco: Never Alcohol Use Standard Drinks/Week Comments Yes 2 (1 standard drink = 0.6 oz pur e alcohol) AUDIT-C Answer Date Recorded Q1: How often do you have a drink containing alc ohol? 2-4 times a month 07/22/2023 Q2: How many drinks containi ng alcohol do you have on a typical day when you are drinking? 1 or 2 07/22/2023 Q3: How often do you have si x or more drinks on one occasion? 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 Gender Identity Male 02/07/2021 12:37 PM CDT Sexual Orientation Straight 02/07/2021 12 :37 PM CDT Occupation Industry Job Start Date Job End Date [employer] Not on file Not on file Not on file documented as of this encounter Plan of Treatment Not on file documented as of this encounter Procedures Procedure Name Priority Date/Time Associated Diagnosis Comments SCAN - RADIOLOGY/IMAGING 12/30/2023 documented in this encounter Results * SCAN - RADIOLOGY/IMAGING (12/30/2023) Anatomical Region Laterality Modality Other us Provider Scanning Final Result documented in this encounter Visit Diagnoses Not on filedocumented in this encounter Care Teams Cloth Spreader Screen Printing Relationship Specialty Start Date End Date Carmen Lindsay PA [address] [place] [address] PCP - General 07/26/20 Carmen Lindsay PA [address] [place] [address] Internal Medicine 07/26/20 [place] [id number] [facility] [address] [place] [id number] Consulting Physician Endocrinology Diabetes & Metabolism 12/31/18 [place] [id number] [facility] [address] [address] Consulting Physician Cardiology 12/31/18 [place] [id number] [address] Consulting Physician Urology 12/31/18 documented as of this encounter
--- OUTSIDE RECORDS SUMMARY | 2025-01-05 15:17 | XMS_ITS | Clinical Summary ---
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 Problem Noted Date Diagnosed Date Resolved Date BMI 36.0-36.9,adult 07/22/2023 06/14/20 Assessment & Plan (07/22/2023 8:58 PM BEAM HOUSE INSPECTOR): Weight/BMI is in healthy range. Continue healthy lifestyle to maintain. Morbid obesity 01/14/2023 07/22/2023 Assessment & Plan (01/14/2023 6:26 PM CDT): Discussed the patient's BMI. The BMI is above average. BMI management plan is completed. BMI Follow-up includes: nutrition counseling, exercise counseling and education provided. Patient has an obesity-related condition (not limited to: hypertension, obstructive sleep apnea, osteoarthritis, hyperlipidemia, diabetes, etc.). Therefore, morbid obesity may be documented for patients with a BMI between 35.00-39.99. BMI 35.0-35.9,adult 01/14/2023 07/22/19 Assessment & Plan (01/14/2023 3:59 PM CDT): Discussed the patient's BMI. The BMI is above average. BMI management plan is completed. BMI Follow-up includes: nutrition counseling, exercise counseling and education provided. Inflamed skin tag 01/14/2023 06/14/2024 Assessment & Plan (01/14/2023 6:12 PM CDT): Patient has an irritated/inflammed skin tag. Would like it removed. Reviewed procedure with patient including process, possible scarring, risk for bleeding and or infection and that the procedure will remove the lesion but if pathology reveals a cancer, a larger more aggressive excision may be needed for definitive treatment. All questions were answered and pt desires to procede. Written consent is on the chart This is a significant, separately identifiable problem that was evaluated and managed on the same day as the wellness exam Area was cleansed with Betadine x 3. 2mm pedunculated lesion below the right axilla. Area infiltrated with Xylocane with Epi. Each skin tag was clamped at the base then snipped with iris scissors. Silver nitrate used for scant hemostasis. Bandaid applied. Pt tolerated well. Reviewed s/s infection and call immediately for any problems. Await pathology. Fatigue 05/27/2022 06/14/2024 Assessment & Plan (05/27/2022 12:19 AM BEAM HOUSE INSPECTOR): Probably multifactorial. Check labs and followup to re-evaluate Annual physical exam 01/14/2022 Assessment & Plan (01/14/2022 1:43 PM CDT): Encouraged healthy lifestyle, good nutrition and exercise. Encouraged Calcium and Vitamin D and weight bearing exercise for bone health. Reviewed immunizations Reviewed age appropirate screenings. Diabetes mellitus screening 01/14/2022 05/27/2022 Assessment & Plan (01/14/2022 1:44 PM CDT): Check labs Morbid obesity 08/29/2021 01/14/2023 Assessment & Plan (05/27/2022 12:18 AM BEAM HOUSE INSPECTOR): Discussed the patient's BMI. The BMI is above average. BMI management plan is completed. BMI Follow-up includes: nutrition counseling, exercise counseling and education provided. Patient has an obesity-related condition (not limited to: hypertension, obstructive sleep apnea, osteoarthritis, hyperlipidemia, diabetes, etc.). Therefore, morbid obesity may be documented for patients with a BMI between 35.00-39.99. Assessment & Plan (01/14/2022 1:43 PM CDT): Discussed the patient's BMI. The BMI is above average. BMI management plan is completed. BMI Follow-up includes: nutrition counseling, exercise counseling and education provided. Patient has an obesity-related condition (not limited to: hypertension, obstructive sleep apnea, osteoarthritis, hyperlipidemia, diabetes, etc.). Therefore, morbid obesity may be documented for patients with a BMI between 35.00-39.99. Assessment & Plan (08/29/2021 11:39 AM BEAM HOUSE INSPECTOR): Obesity is unchanged. Discussed the patient's BMI. The BMI is above average. BMI management plan is completed. BMI Follow-up includes: nutrition counseling, exercise counseling and education provided. Acute non-recurrent frontal sinusitis 08/18/2021 06/14/2024 Assessment & Plan (08/18/2021 10:45 AM BEAM HOUSE INSPECTOR): Start antibiotic, antihistamine (Claritin OR Zyrtec), Mucinex 12hour and Steroid nasal spray (Flonase). Push fluids. Rest. Supportive care. If sxs worsen or don\'t improve, pt is to followup in the office. Paroxysmal atrial fibrillation 05/20/2021 06/14/2024 Assessment & Plan (05/20/2021 10:00 AM BEAM HOUSE INSPECTOR): Continue per Cardiology. Flu vaccine need 05/20/2021 07/22/2023 Assessment & Plan (05/20/2021 10:00 AM BEAM HOUSE INSPECTOR): Flu vaccine updated in the office today Obesity (BMI 30-39.9) 04/17/20212021 Assessment & Plan (04/17/2021 4:24 PM CDT): Obesity is unchanged. Discussed the patient's BMI. The BMI is above average. BMI management plan is completed. BMI Follow-up includes: nutrition counseling, exercise counseling and education provided. BMI 34.0-34.9,adult 04/17/2021 08/30/19 Assessment & Plan (04/17/2021 4:25 PM CDT): Obesity is unchanged. Discussed the patient's BMI. The BMI is above average. BMI management plan is completed. BMI Follow-up includes: nutrition counseling, exercise counseling and education provided. Obesity (BMI 30-39.9) 01/09/20212020 Assessment & Plan (01/09/2021 4:22 PM CDT): Obesity is unchanged. Discussed the patient's BMI. The BMI is above average. BMI management plan is completed. BMI Follow-up includes: nutrition counseling, exercise counseling and education provided. BMI 34.0-34.9,adult 01/09/2021 04/17/20 Assessment & Plan (01/09/2021 4:22 PM CDT): Obesity is unchanged. Discussed the patient's BMI. The BMI is above average. BMI management plan is completed. BMI Follow-up includes: nutrition counseling, exercise counseling and education provided. Abdominal bloating 11/17/2020 Assessment & Plan (11/17/2020 10:06 AM CDT): He declines to report to er now for further evaluation and treatment. Will arrange for stat ct and labs, will notify him of results as available. Will refer to gi for further discussion Intractable vomiting 11/17/2020 024 Assessment & Plan (11/17/2020 10:07 AM CDT): He declines to report to er now for further evaluation and treatment. Will arrange for stat ct and labs, will notify him of results as available. Will refer to gi for further discussion Arthralgia of both knees 10/25/2020 Assessment & Plan (10/25/2020 3:31 PM CDT): I did order an iron and ferritin level. BMI 33.0-33.9,adult 07/07/2020 01/10/20 21 Assessment & Plan (11/17/2020 9:36 AM CDT): Obesity is unchanged. Discussed the patient's BMI. The BMI is above average. BMI management plan is completed. BMI Follow-up includes: nutrition counseling, exercise counseling and education provided. Assessment & Plan (10/19/2020 2:55 PM CDT): Obesity is unchanged. Discussed the patient's BMI. The BMI is above average. BMI management plan is completed. BMI Follow-up includes: nutrition counseling, exercise counseling and education provided. Assessment & Plan (07/07/2020 1:33 PM BEAM HOUSE INSPECTOR): Obesity is unchanged. Discussed the patient's BMI. The BMI is above average. BMI management plan is completed. BMI Follow-up includes: nutrition counseling, exercise counseling and education provided. Other fatigue 01/31/2020 01/31/2020 Assessment & Plan (01/31/2020 9:32 PM CDT): Probably multifactorial. Check labs and followup to re-evaluate Annual physical exam 01/31/2020 021 Assessment & Plan (01/15/2021 10:08 AM CDT): Encouraged healthy lifestyle, good nutrition and exercise. Encouraged Calcium and Vitamin D and weight bearing exercise for bone health. Reviewed immunizations Reviewed age appropirate screenings. Assessment & Plan (01/31/2020 9:32 PM CDT): Encouraged healthy lifestyle, good nutrition and exercise. Encouraged Calcium and Vitamin D and weight bearing exercise for bone health. Reviewed immunizations Reviewed age appropirate screenings. Diabetes mellitus screening 03/23/2019 01/31/2020 Assessment & Plan (03/23/2019 8:51 PM CDT): Check labs Prostate cancer screening 01/16/2019 Assessment & Plan (01/16/2019 8:05 PM CDT): Check labs BMI 35.0-35.9,adult 01/05/2019 07/07/19 Assessment & Plan (01/31/2020 9:32 PM CDT): Obesity is unchanged. Discussed the patient's BMI. The BMI is above average. BMI management plan is completed. BMI Follow-up includes: nutrition counseling, exercise counseling and education provided. Assessment & Plan (03/23/2019 5:37 PM CDT): BMI Follow-up includes: Discussed diet and exercising counseling. Assessment & Plan (01/16/2019 8:07 PM CDT): Obesity is unchanged. Discussed the patient's BMI. The BMI is above average. BMI management plan is completed. BMI Follow-up includes: nutrition counseling, exercise counseling and education provided. Obesity (BMI 30-39.9) 01/05/20192020 Assessment & Plan (11/17/2020 9:36 AM CDT): Obesity is unchanged. Discussed the patient's BMI. The BMI is above average. BMI management plan is completed. BMI Follow-up includes: nutrition counseling, exercise counseling and education provided. Assessment & Plan (10/19/2020 2:54 PM CDT): Obesity is unchanged. Discussed the patient's BMI. The BMI is above average. BMI management plan is completed. BMI Follow-up includes: nutrition counseling, exercise counseling and education provided. Assessment & Plan (07/07/2020 2:02 PM BEAM HOUSE INSPECTOR): Obesity is unchanged. Discussed the patient's BMI. The BMI is above average. BMI management plan is completed. BMI Follow-up includes: nutrition counseling, exercise counseling and education provided. Assessment & Plan (01/31/2020 9:31 PM CDT): Obesity is unchanged. Discussed the patient's BMI. The BMI is above average. BMI management plan is completed. BMI Follow-up includes: nutrition counseling, exercise counseling and education provided. Assessment & Plan (03/23/2019 5:37 PM CDT): Obesity is unchanged. Discussed the patient's BMI. The BMI is above average. BMI management plan is completed. BMI Follow-up includes: nutrition counseling, exercise counseling and education provided. Assessment & Plan (01/05/2019 5:10 PM CDT): Obesity is unchanged. Discussed the patient's BMI. The BMI is above average; BMI management plan is completed. General weight loss/lifestyle modification strategies discussed (elicit support from others; identify saboteurs; non-food rewards, etc). Encouraged increased exercise. Colon cancer screening 01/05/201901/30 Assessment & Plan (01/16/2019 8:03 PM CDT): Referral to GI for colonoscopy after age 50yo Calculus of kidney 01/28/2017 Chronic pain of right knee 06/13/2016 1 08/15/2023 Internal derangement of right knee 06/13/2016 06/14/2024 Urticaria, unspecified 09/07/201501/30 Atrial fibrillation 06/04/2012 06/20/20 17 Overview (09/26/2016): Atrial fibrillation Encounters Date Type Department Care Team Description 12/07/2024 Orders Only [facility] Pulmonology [address] [place] [id number] Derick Sandy MD Obstructive sleep apnea (Primary Dx) 10/08/2024 Results Follow-Up [facility] Family Medicine [address] [place] [address] Carmen Lindsay PA MMR (IGG) PANEL (MEASLES, MUMPS, RUBELLA) from Last 3 Months Immunizations Immunization Administration Dates Next Due Heplisav-b (Hepatitis B) 01/17/2022,11/29/2021 Influenza, Quadrivalent, Rec ombinant, Egg Free, Preservative Free, Intramuscular 04/17/2022 Influenza, Quadrivalent, Spl it, Preservative Free, Intramuscular 04/22/2023,04/17/2021,04/18/2020,03/23,05/01/2018 Influenza, Trivalent, IM (MDV) 03/24/2018 Influenza, Unspecified 04/22/2023,2022(Deferred: Patient Refused),04/17/2022 Moderna SARS-CoV-2 Monovalen t Vaccination (12+ YRS) 08/27/2020,07/30/2020,06/24/2000 Tdap 06/03/2024,06/24/2015 ZOSTER Recombinant 02/26/2022,11/29/2021 Surgical History Surgery Date Site/Laterality Comments OTHER SURGICAL HISTORY Hypothyroidism, since age 11 yrs: OTHER SURGICAL HISTORY Hypothyroidism, since age 11 yrs: VASECTOMY 06/24/2011 - 06/23/2012 Vasectomy KIDNEY STONE SURGERY CHOLECYSTECTOMY KNEE ARTHROSCOPY W/ MENISCAL REPAIR Right SINUS SURGERY LASIK 2002 SHOULDER SURGERY Right Clavicle MENISCUS SURGERY Left left knee meniscus cleaned up Medical History Medical History Date Comments Hx Other Medical Hypothyroidism, since age 11 yrs Hx Other Medical 2008 Hyperthyroidism , iatrogenic Hx Other Medical ablation for at rial fib 2008 Disorder of thyroid Thyroid dise ase Hx Other Medical Arrhythmias (PA F) Hypertension Hypertension GERD (gastroesophageal reflu x disease) 2000 Arthritis 2014 Brain concussion Jun 1989 Heart disease A-Fib Mar 2008 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 Sleep apnea Apr 2008 Kidney stone 2011 Family History Medical History Relation Name Comments Allergic rhinitis Brother Arthritis Father Prateek Edwin Asthma Father Prateek Pineda Cancer Father Prateek Pineda Heart attack Father Prateek Pineda Myocardial infa rction; Liver cancer Father Prateek Pineda Cancer, liver; Cause of : Cancer, liver Prostate cancer Father Prateek Pineda Cancer, pros de luna; Cause of : Cancer, prostate Depression Mother Christin Pineda Mental illness Mother Christin Pineda Thyroid disease Other Family histo ry of Thyroid disease; Arthritis Paternal Grandfather Gorge Pineda Relation Name Status Comments Brother Father Prateek Pineda Mother Christin Pineda Other Paternal Grandfather Gorge Pineda Alive Social History Tobacco Use Types Packs/Day Years Used Date Smoking Tobacco: Never Smokeless Tobacco: Never Tobacco Cessation:Counseling Given: Not Answered Alcohol Use Standard Drinks/Week Comments Yes 2 (1 standard drink = 0.6 oz pur e alcohol) AUDIT-C Answer Date Recorded Q1: How often do you have a drink containing alc ohol? 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 Not on file Not on file Obstetrics History Last Filed Vital Signs Vital Sign Reading Time Taken Comments Blood Pressure 110/74 09/22/2024 3:34 PM CDT Pulse 72 09/22/2024 3:34 PM CDT Temperature 36.4 C (97.6 F) 09/09/2024 2:47 PM CDT Respiratory Rate 18 09/09/2024 2:47 PM CDT Oxygen Saturation 95% 09/22/2024 3:34 PM CDT Inhaled Oxygen Concentration - - Weight 127.5 kg (281 lb) 09/22/2024 3:34 PM CDT Height 188 cm (6' 2) 09/22/2024 3:34 PM CDT Body Mass Index 36.08 09/22/2024 3:34 PM CDT Plan of Treatment Health Maintenance Due Date Last Done Comments Hepatitis C Screening 1970 Covid-19 Vaccine ( season) 2024 04/17/2022, 04/28/2021, 08/27/2020, Additional history exists Influenza Vaccine (#1) 2025 , 04/22/2023, 04/22/2023, Additional history exists Depression Screening 06/03/2025 06/03/2024, 07/22/2023, 01/14/2023, Additional history exists Regular Well Visit/Exam 18-64 06/03/2025 06/03/2024, 01/14/2023, 01/08/2022, Additional history exists Colon Cancer Screening-Colonoscopy 03/26/2026 03/26/2019 Prostate Cancer Screening-PSA 05/28/2026 05/28/2024, 05/16/2022, 09/25/2021, Additional history exists DTaP/Tdap/Td Vaccine (3 - Td or Tdap) 06/03/2034 06/03/2024, 06/24/2015 Colon Cancer Screening-CT Colonography Discontinued 03/26/2019 Colon Cancer Screening-DNA Stool Discontinued 03/26/2019 Colon Cancer Screening-FIT Discontinued 03/26/2019 Colon Cancer Screening-Sigmoidoscopy Discontinued 03/26/2019 Hepatitis B Screening Completed 01/17/2022, 022 Zoster Vaccine Completed 02/26/2022, 11/29/2021 Pneumococcal vaccine <65 Aged Out No longer eligible based on patient's age to complete this topic Procedures Procedure Name Priority Date/Time Associated Diagnosis Comments MMR (IGG) PANEL (MEASLES, MUMPS, RUBELLA) Routine 10/07/2024 2:52 PM CDT Screening for measles PSA SCREEN Routine 05/28/2024 8:38 AM BEAM HOUSE INSPECTOR Screening for prostate cancer HM COLONOSCOPY Routine 03/26/2019 from Last 3 Months or Most Recently Relevant to Health Maintenance Results * (ABNORMAL) MMR (IGG) PANEL (MEASLES, MUMPS, RUBELLA) (10/07/2024 2:52 PM CDT) Measles (Rubeola) IgG 75.00 AU/mL [facility] Comment: AU/mL Interpretation ----- <13.50 Not consistent with immunity 13.50-16.49 Equivocal >16.49 Consistent with immunity The presence of measles IgG suggests immunization or past or current infection with measles virus. For additional information, please refer to http://education.[employer]/faq/OYI381 (This link is being provided for informational/ educational purposes only.) Mumps IgG <9.00(L) AU/mL [facility] Comment: AU/mL Interpretation ------- <9.00 Not consistent with immunity 9.00-10.99 Equivocal >10.99 Consistent with immunity The presence of mumps IgG antibody suggests immunization or past or current infection with mumps virus. Rubella IgG >33.00 Index [facility] Comment: Index Interpretation ----- <0.90 Not consistent with immunity 0.90-0.99 Equivocal > or = 1.00 Consistent with immunity The presence of rubella IgG antibody suggests immunization or past or current infection with rubella virus. Blood 10/07/2024 2:52 PM CDT 10/07/2024 2:54 PM CDT Carmen BOYER LAB BLOOD ORDERABLES Final Result [facility] [address] [facility] [place] [address] * PSA screen (05/28/2024 8:38 AM BEAM HOUSE INSPECTOR) PSA 0.37 < OR = 4.00 ng/mL [facility] Comment: The total PSA value from this assay system is standardized against the WHO standard. The test result will be approximately 20% lower when compared to the equimolar-standardized total PSA (Lokesh Cherie). Comparison of serial PSA results should be interpreted with this fact in mind. This test was performed using the Siemens chemiluminescent method. Values obtained from different assay methods cannot be used interchangeably. PSA levels, regardless of value, should not be interpreted as absolute evidence of the presence or absence of disease. Blood 05/28/2024 8:38 AM BEAM HOUSE INSPECTOR 05/28/2024 8:38 AM BEAM HOUSE INSPECTOR Carmen BOYER LAB BLOOD ORDERABLES Final Result [facility] [address] [facility] [place] [address] * COLONOSCOPY (03/26/2019) Colonoscopy Abnormal Comment:Awiting pathology to determine followup. Colitis/polyp Historical Provider MD HEALTH MAINTENANCE Final Result from Last 3 Months or Most Recently Relevant to Health Maintenance Insurance [facility] [employer] [facility] [employer] Care Teams Mushroom Farmer Relationship Specialty Start Date End Date Carmen Lindsay PA [address] [place] [address] PCP - General 07/26/20 Carmen Lindsay PA [address] [place] [address] Internal Medicine 07/26/20 [place] [address] [facility] [address], [place] [address] Consulting Physician Endocrinology Diabetes & Metabolism 12/31/18 [place] [address] [facility] [address] [place] [address] Consulting Physician Cardiology 12/31/18 [place] [address] [facility] [address] [place] [address] Consulting Physician Urology 12/31/18
--- OUTSIDE RECORDS SUMMARY | 2025-01-05 15:17 | XMS_ITS | Encounter Summary ---
Author Organization [facility] Facility Care Team Providers Care Edge Polisher Name Role Phone Carmen Lindsay Primary Care Provider [phone] Carmen Lindsay Primary Care Provider [phone] Carmen Lindsay Unavailable [phone] Jhonny Colvin MD Unavailable Baldemar Ramirez MD Unavailable [phone] Joss Lopez MD Unavailable Encounter Details Date Type Department Care Team (Latest Contact Info) Description 12/30/2017 Orders Only [facility] ProviderEsmer [facility] [place] [address] Social History Tobacco Use Types Packs/Day Years Used Date Smoking Tobacco: Never Alcohol Use Standard Drinks/Week Comments Yes 0 (1 standard drink = 0.6 oz pur e alcohol) Sex and Gender Information Value Date Recorded Sex Assigned at Not on file Legal Sex Male 10:51 AM INSTRUMENTAL TEACHER Gender Identity Male 02/07/2021 12:37 PM CDT Sexual Orientation Straight 02/07/2021 12 :37 PM CDT documented as of this encounter Plan of Treatment Not on file documented as of this encounter Procedures Procedure Name Priority Date/Time Associated Diagnosis Comments SCAN - LABS 12/31/2017 12:00 AM CDT documented in this encounter Results * SCAN - LABS (12/31/2017 12:00 AM CDT) Narrative 12/31/2017 12:00 AM CDT Ordered by an unspecified provider. us Historical Provider Final Res ult documented in this encounter Visit Diagnoses Not on filedocumented in this encounter Additional Health Concerns Infection Onset Date Last Indicated Resolved Time Exposure, COVID-19 Comment:Added automatically based on COVID19 lab answers indicating exposure risk 07/18/2023 07/18/2023 07/28/2023 3:[address] COVID: Suspected 07/18/2023 07/18/2023 07/18/2023 9:11 AM INSTRUMENTAL TEACHER COVID: Suspected 07/18/2023 07/18/2023 07/18/2023 2:55 PM INSTRUMENTAL TEACHER Influenza, adult 07/18/2023 07/18/2023 07/25/2023 3:05 AM INSTRUMENTAL TEACHER documented as of this encounter Care Teams Edge Polisher Relationship Specialty Start Date End Date Carmen Lindsay PA [address] [place] [address] PCP - General Internal Medicine 07/28/18 07/25/20 Carmen Lindsay PA [address] [place] [address] PCP - General 07/26/20 Carmen Lindsay PA [address] [place] [address] Internal Medicine 07/26/20 [place] [address] [facility] [address], [place] [id number] Consulting Physician Endocrinology Diabetes & Metabolism 12/31/18 [place] [address] [address] Consulting Physician Cardiology 12/31/18 [place] [address] [address] Consulting Physician Urology 12/31/18 documented as of this encounter
--- OUTSIDE RECORDS SUMMARY | 2025-01-05 15:17 | XMS_ITS | Clinical Summary ---
Author Organization [facility] Address [address] [place] [address] Care Team Providers Care Negative Assembler Name Role Phone Carmen Lindsay Primary Care Provider [phone] Allergies Active Allergy Reactions Criticality Noted Date Comments Other-Food Allergen (Not Found In Search) Hives,Other (see Comments) 12/19/2020 Food dyes, red blue and yellow Propafenone Rash 12/19/2020 Medications levothyroxine (SYNTHROID) 150 MCG Tablet Take 188 mcg by mouth daily. Active omeprazole (PriLOSEC) 40 MG CAPSULE DELAYED RELEASE Take 40 mg by mouth daily. Active aMILoride (MIDAMOR) 5 MG Tablet Take 5 mg by mouth daily. Active [place]-3 Fatty Acids (OMEGA 3 PO) Take by mouth daily. INSTRUCTED TO HOLD FOR 5 DAYS PRIOR TO PROCEDURE ON 03/24/2024 Active BABY ASPIRIN PO Take 325 mg by mouth daily. Active LOSARTAN POTASSIUM PO Take 12.5 mg by mouth every morning. Active atorvastatin (LIPITOR) 20 MG Tablet Take 20 mg by mouth daily. Active glucosamine-cho ndroitin 500-400 MG Capsule Take 1 Capsule by mouth in the morning and at bedtime. Active Multiple Vitamin (MULTIVITAMIN PO) Take by mouth. INSTRUCTED TO HOLD FOR 5 DAYS PRIOR TO PROCEDURE ON 03/24/2024 Active chlorthalidone (HYGROTON) 25 MG Tablet Take 25 mg by mouth daily. Active allopurinol (ZYLOPRIM) 100 MG Tablet Take 100 mg by mouth nightly. Active gabapentin (NEURONTIN) 300 MG Capsule Take 300 mg by mouth nightly. Active clonazePAM (KlonoPIN) 0.5 MG Tablet Take 0.5 mg by mouth nightly. Active magnesium oxide (MAG-OX) 400 MG Tablet Take 400 mg by mouth nightly. Active Azelastine-Flut icasone 137-50 MCG/ACT Suspension by Nasal route in the morning and at bedtime. Active cetirizine (ZyrTEC) 10 MG Tablet Take 10 mg by mouth in the morning and at bedtime. Active famotidine (PEPCID) 20 MG Tablet Take 20 mg by mouth 2 times daily. Active montelukast (SINGULAIR) 10 MG Tablet Take 10 mg by mouth every evening. 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 024 GERD (gastroesophageal reflux disease) Immunizations Immunization Administration Dates Next Due Covid-19, Mrna, Lnp-s, PF, 1 00 mcg/0.5 mL Dose (Moderna) 04/28/2021 Influenza Vaccine, Quadrivalent, PF 04/18/2020,0 03/23/2019,05/01/2018 Family History Medical History Relation Name Comments Hypertension Brother Heart Attack Father Prostate Cancer Father Diabetes Maternal Grandfather Cancer Paternal Uncle Relation Name Status Comments Brother Father Maternal Grandfather Mother Paternal Uncle Social History Tobacco Use Types Packs/Day Years Used Date Smoking Tobacco: Never Smokeless Tobacco: Never Tobacco Cessation:Counseling Given: No Alcohol Use Standard Drinks/Week Comments Yes 0 (1 standard drink = 0.6 oz pur e alcohol) RARELY Sexually Active Control Partners Comments Yes Sex and Gender Information Value Date Recorded Sex Assigned at Male 02/15/2024 2:36 PM CDT Legal Sex Male 8:28 AM CDT Gender Identity Male 02/15/2024 2:36 PM CDT Sexual Orientation Straight 02/15/2024 2: 36 PM CDT Last Filed Vital Signs Vital Sign Reading Time Taken Comments Blood Pressure 118/82 03/24/2024 2:24 PM CDT Pulse 69 03/24/2024 2:24 PM CDT Temperature 37 C (98.6 F) 03/24/2024 2:24 PM CDT Respiratory Rate 19 03/24/2024 2:24 PM CDT Oxygen Saturation 100% 03/24/2024 2:24 PM CDT Inhaled Oxygen Concentration - - Weight 130.2 kg (287 lb) 03/12/2024 1:38 PM CDT Height 188 cm (6' 2) 03/12/2024 1:38 PM CDT Body Mass Index 36.85 03/12/2024 1:38 PM CDT Plan of Treatment Health Maintenance Due Date Last Done Comments Hepatitis C Virus (HCV) Screening 1970 TdaP Immunization 1969 Cologuard 2014 Immunochemical Fecal Occult Blood 2014 Pneumococcal Immunization (50+ years) (1 of 1 - PCV) 2019 SARS-COV-2 Immunization ( season) 2024 04/17/2022, 04/28/2021, 08/27/2020, Additional history exists PSA Discussion 2024 Influenza Immunization (#1) 02/22/202507/2023, 04/22/2023, 04/17/2022, Additional history exists Colonoscopy 03/26/2026 03/26/2019 Colorectal Cancer Screening 03/26/2026 Respiratory Syncytial Virus (RSV) Immunization (Adult) (1 - 1-dose 75+ series) 2044 Hepatitis B Immunization Completed 01/17/2022, 01/2022 Zoster Immunization Completed 02/26/2022, Human Papillomavirus (HPV) Immunization Aged Out No longer eligible based on patient's age to complete this topic Meningococcal Immunization (ACWY) Aged Out No longer eligible based on patient's age to complete this topic Rotavirus Immunization Aged Out No lo nger eligible based on patient's age to complete this topic Procedures Procedure Name Priority Date/Time Associated Diagnosis Comments COLONOSCOPY Routine 03/26/2019 from Last 3 Months or Most Recently Relevant to Health Maintenance Results * COLONOSCOPY (03/26/2019) us Trevor Villeda DO PROCEDURE/MINOR SURGICAL ORDERA BLES Final Result from Last 3 Months or Most Recently Relevant to Health Maintenance Insurance [facility] Care Teams Negative Assembler Relationship Specialty Start Date End Date Carmen Lindsay, PAC PCP - General Physician Cold Type Artist 04/02/19
--- OUTSIDE RECORDS SUMMARY | 2025-01-05 15:17 | XMS_ITS | Encounter Summary ---
Author Organization [facility] Facility Care Team Providers Care Outpatient Interviewing Clerk Name Role Phone Carmen Lindsay Primary Care Provider [phone] Carmen Lindsay Primary Care Provider [phone] Carmen Lindsay Unavailable [phone] Jhonny Colvin MD Unavailable Baldemar Ramirez MD Unavailable [phone] Joss Lopez MD Unavailable [phone] Encounter Details Date Type Department Care Team (Latest Contact Info) Description 11/03/2017 Orders Only [facility] CLINCONV ProviderEsmer MD [facility] [place] [address] Social History Tobacco Use Types Packs/Day Years Used Date Smoking Tobacco: Never Alcohol Use Standard Drinks/Week Comments Yes 0 (1 standard drink = 0.6 oz pur e alcohol) Sex and Gender Information Value Date Recorded Sex Assigned at Not on file Legal Sex Male 10:51 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 Gender Identity Male 02/07/2021 12:37 PM CDT [...] COVID: Suspected 07/18/2023 07/18/2023 07/18/2023 9:11 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 COVID: Suspected 07/18/2023 07/18/2023 07/18/2023 2:55 PM REGIONAL SERVICE MANAGER Influenza, adult 07/18/2023 07/18/2023 07/25/2023 3:05 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 documented as of this encounter Care Teams Outpatient Interviewing Clerk Relationship Specialty Start Date End Date Carmen Lindsay PA [address] [place] [address] PCP - General Internal Medicine 07/28/18 07/25/20 Carmen Lindsay PA [address] [place] [address] PCP - General 07/26/20 Carmen Lindsay PA [address] [place] [address] Internal Medicine 07/26/20 [place] [address] [facility] [address], [place] [id number] Consulting Physician Endocrinology Diabetes & Metabolism 12/31/18 [place] [address] [address] Consulting Physician Cardiology 12/31/18 [place] [address] [address] Consulting Physician Urology 12/31/18 documented as of this encounter
--- OUTSIDE RECORDS SUMMARY | 2025-01-05 15:17 | XMS_ITS | Encounter Summary ---
Author Organization [facility] Address [address] [place] [address] Phone Care Team Providers Care Rock Duster Name Role Phone Carmen Lindsay Primary Care Provider Unav ailable Reason for Visit * Reason Comments Med Refill Encounter Details Date Type Department Care Team (Late st Contact Info) Description 05/17/2022 Refill [facility] Nephrology and Hypertension [address] [facility], [address] [facility] [place] [address] Shola Morejon MD [address] [facility] [facility] [place] [address] Social History Tobacco Use Types Packs/Day Years Used Date Smoking Tobacco: Never Smokeless Tobacco: Never Alcohol Use Standard Drinks/Week Comments Yes 1 (1 standard drink = 0.6 oz pur e alcohol) Sex and Gender Information Value Date Recorded Sex Assigned at Male 02/07/2021 11:48 AM MDT Legal Sex Male 10:03 AM MST Gender Identity Male 02/07/2021 11:48 AM MDT Sexual Orientation Straight 02/07/2021 11 :48 AM MDT documented as of this encounter Plan of Treatment Not on file documented as of this encounter Visit Diagnoses Not on filedocumented in this encounter Care Teams Rock Duster Relationship Specialty Start Date End Date Carmen Lindsay PA PCP - General Family Medicine 04/08/19 documented as of this encounter
--- OUTSIDE RECORDS SUMMARY | 2025-01-05 15:17 | XMS_ITS | Encounter Summary ---
Author Organization [facility] Facility Care Team Providers Care Reinforcer Name Role Phone Carmen Lindsay Primary Care Provider [phone] Carmen Lindsay Primary Care Provider [phone]- [phone] Carmen Lindsay Unavailable [phone] Jhonny Colvin MD Unavailable Baldemar Ramirez MD Unavailable [phone] Joss Lopez MD Unavailable [phone] Encounter Details Date Type Department Care Team (Latest Contact Info) Description 01/27/2018 Orders Only [facility] CLINCONV ProviderEsmer [place] [facility] [place] [address] Social History Tobacco Use Types Packs/Day Years Used Date Smoking Tobacco: Never Alcohol Use Standard Drinks/Week Comments Yes 0 (1 standard drink = 0.6 oz pur e alcohol) Sex and Gender Information Value Date Recorded Sex Assigned at Not on file Legal Sex Male 10:51 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 us Historical Provider Final Res ult documented in this encounter Visit Diagnoses Not on filedocumented in this encounter Additional Health Concerns Infection Onset Date Last Indicated Resolved Time Exposure, COVID-19 Comment:Added automatically based on COVID19 lab answers indicating exposure risk 07/18/2023 07/18/2023 07/28/2023 3:[address] COVID: Suspected 07/18/2023 07/18/2023 07/18/2023 9:11 AM DANCE HALL HOST/HOSTESS COVID: Suspected 07/18/2023 07/18/2023 07/18/2023 2:55 PM DANCE HALL HOST/HOSTESS Influenza, adult 07/18/2023 07/18/2023 07/25/2023 3:05 AM DANCE HALL HOST/HOSTESS documented as of this encounter Care Teams Reinforcer Relationship Specialty Start Date End Date Carmen Lindsay PA [address] [place] [address] PCP - General Internal Medicine 07/28/18 07/25/20 Carmen Lindsay PA [address] [place] [address] PCP - General 07/26/20 Carmen Lindsay PA [address] [place] [address] Internal Medicine 07/26/20 [place] [address] [address] [facility] [address], [place] [id number] Consulting Physician Endocrinology Diabetes & Metabolism 12/31/18 [place] [address] [address] Consulting Physician Cardiology 12/31/18 [place] [address] [address] Consulting Physician Urology 12/31/18 documented as of this encounter
--- OUTSIDE RECORDS SUMMARY | 2025-01-05 15:17 | XMS_ITS | Clinical Summary ---
Author Organization [facility] Address [address] [place] [address] Phone Care Team Providers Care Professor Of Finance Name Role Phone Carmen Lindsay Primary Care Provider Unav ailable Allergies Active Allergy Reactions Criticality Noted Date Comments Other Rash,Hives,Other (see comments) Medium 06/13/2016 Food dyes, red blue and yellow Propafenone Rash Medium 03/21/2019 Red Dye #40 (Allura Red) Hives Medium 06/19/2018 Tomato Hives Medium 06/19/2018 Yellow Dye Hives Medium 06/19/2018 Medications Glucosamine-Cho ndroit-Vit C-Mn (GLUCOSAMINE 1500 COMPLEX) capsule 1 daily 0 7 Active atorvastatin (LIPITOR) 20 MG tablet 1 daily 0 9 Active aspirin EC 325 MG EC tablet 1 tablet (325 mg) orally daily 0 7 Active Letona-3 Fatty Acids (FISH OIL BURP-LESS) 1000 MG capsule 1 capsule (1,000 mg) orally daily 0 7 Active losartan (COZAAR) 25 MG tablet Take 25 mg by mouth daily 9 Active omeprazole (PriLOSEC) [address] capsule Take 40 mg by mouth 1 (one) time each day Do not crush or chew. Active levothyroxine (SYNTHROID) 100 MCG tablet TAKE 1 TABLET BY MOUTH ONCE DAILY ALONG WITH 88MCG TO EQUAL 188MCG DAILY 2 Active levothyroxine (SYNTHROID) 88 MCG tablet TAKE 1 TABLET BY MOUTH ONCE DAILY ALONG WITH 100MCG TABLETS TO EQUAL 188MCG DAILY 2 Active Azelastine-Flut icasone 137-50 MCG/ACT suspension SPRAY 1 SPRAY(S) INTRANASALLY TWICE DAILY 2 Active gabapentin (NEURONTIN) 300 MG capsule TAKE 1 CAPSULE BY MOUTH NIGHTLY 2 Active Multiple Vitamin (Multi-Vitamin) tablet Take 1 tablet by mouth daily Active tadalafil (CIALIS) 5 MG tablet TAKE 1 TO 4 TABLETS BY MOUTH ONCE DAILY NEEDED 2 Active aMILoride-hydro CHLOROthiazide (MODURETIC 5-50) 5-50 MG tablet Take 1 tablet by mouth once daily 90 tablet 2 Active clonazePAM (KlonoPIN) 0.5 MG tablet Take 0.5 mg by mouth every night 2 Active montelukast (SINGULAIR) 10 MG tablet Take 10 mg by mouth every night 2 Active Active Problems Problem Noted Date Diagnosed Date Paroxysmal atrial fibrillation 05/20/2021 Overview (05/25/2021): Last Assessment & Plan: Continue per Cardiology. Rjqchbxnnyw-xbihpchzhi-rxmnzb inhibitor adverse reaction 01/05/2019 Body mass index 30+ - obesity 01/05/2019 Overview (10/10/2019): Last Assessment & Plan: Obesity is unchanged. Discussed the patient's BMI. The BMI is above average. BMI management plan is completed. BMI Follow-up includes: nutrition counseling, exercise counseling and education provided. Aortic root dilatation 07/28/2018 H/O: atrial fibrillation 07/15/2018 Hyperlipidemia 06/19/2018 Essential hypertension 06/20/2017 Overview (03/21/2019): Hypertension Last Assessment & Plan: Bp is stable/in acceptable range for any co-morbidities. Encouraged to limit sodium intake and exercise for weight control. Calculus of kidney 01/28/2017 Gastro-esophageal reflux disease without esophag itis 01/28/2017 Obstructive sleep apnea 01/28/2017 Angioedema 09/08/2015 Chronic urticaria 09/08/2015 Overview (05/28/2022): Last Assessment & Plan: Has continued same plan per the emery wheel molder in his symptoms are stable. Hypothyroidism 01/20/2013 Overview (03/21/2019): HYPOTHYROIDISM NOS Last Assessment & Plan: Continue to monitor labs. Continue levothyroxine. Immunizations Immunization Administration Dates Next Due Influenza TIV (IM) 03/24/2018 Influenza, Injectable, Quadr ivalent, Preservative Free 04/17/2021,04/18/2020,03/23/2019,2017 Influenza, Injectable,nikos valent, Preservative Free, Pedic 03/23/2019 Influenza, Unspecified 04/17/2022 Moderna Sars-cov-2 Vaccination 08/27/2020,2020,06/24/2000 Tdap 06/24/2015 Family History Medical History Relation Comments Malignant neoplastic disease Father Kidney disease Neg Hx Kidney stone Neg Hx Relation Status Comments Father Social History Tobacco Use Types Packs/Day Years [...] Orientation Straight 02/07/2021 11 :48 AM MDT Last Filed Vital Signs Vital Sign Reading Time Taken Comments Blood Pressure 124/70 05/28/2022 3:07 PM ASSISTANT EXECUTIVE HOUSEKEEPER Pulse 72 05/28/2022 3:07 PM ASSISTANT EXECUTIVE HOUSEKEEPER Temperature 36.3 C (97.3 F) 05/28/2022 3:07 PM ASSISTANT EXECUTIVE HOUSEKEEPER Respiratory Rate - - Oxygen Saturation - - Inhaled Oxygen Concentration - - Weight 132 kg (291 lb) 05/28/2022 3:07 PM ASSISTANT EXECUTIVE HOUSEKEEPER Height 188 cm (6' 2) 05/28/2022 3:07 PM ASSISTANT EXECUTIVE HOUSEKEEPER Body Mass Index 37.36 05/28/2022 3:07 PM ASSISTANT EXECUTIVE HOUSEKEEPER Plan of Treatment Health Maintenance Due Date Last Done Comments COVID-19 Vaccine (2023-2 5 season) 2024 04/28/2021, 08/27/2020, 07/30/2020, Additional history exists Influenza Vaccine (#1) 2025 , 04/17/2021, 04/18/2020, Additional history exists Insurance [facility] Care Teams Professor Of Finance Relationship Specialty Start Date End Date Carmen Lindsay PA PCP - General Family Medicine 04/08/19
--- OUTSIDE RECORDS SUMMARY | 2025-01-05 15:17 | XMS_ITS | Clinical Summary ---
Author Organization [facility] Address [address] [place] [address] Care Team Providers Care Manager Planning Name Role Phone Carmen Lindsay PA-C Primary Care Provider [phone] Allergies Active Allergy Reactions Criticality Noted Date Comments Blue Dye Hives,Rash High 06/13/2016 Blue food dyes Propafenone Rash Low 10/03/2021 Red Dye Hives,Other (See Comments) High 1 Red food dye Yellow Dye Hives,Other (See Comments) High 1 Yellow food dye Medications omeprazole (PriLOSEC) 40 mg Capsule, Delayed Release(E.C.) Take 40 mg by mouth daily at bedtime. 6 Active losartan (COZAAR) 25 mg tablet Take 25 mg by mouth daily. 9 Active glucosamine/cho ndr stephenson A sod (Glucosamine-Ch ondroitin) 1,500-1,200 mg/30 mL Liquid Take 1 Tablet by mouth 2 times daily. Active atorvastatin (LIPITOR) 20 mg tablet Take 20 mg by mouth daily. 9 Active aMILoride-hydro CHLOROthiazide (MODURETIC) 5-50 mg Tablet Take 1 Tablet by mouth daily. 0 Active levothyroxine 88 mcg tablet Take 88 mcg by mouth daily in the morning. Active fish oil-omega-3 fatty acids 340-1,000 mg Capsule Take 1 Capsule by mouth daily at bedtime. Active gabapentin (NEURONTIN) 300 mg capsule Take 300 mg by mouth daily at bedtime. Active cetirizine (ZyrTEC) 10 mg tablet Take 10 mg by mouth daily at bedtime. Active famotidine (PEPCID) 20 mg tablet Take 20 mg by mouth 2 times daily. Active montelukast (SINGULAIR) 10 mg tablet Take 10 mg by mouth daily at bedtime. Active clonazePAM (KlonoPIN) 0.5 mg Tablet Take 0.5 mg by mouth daily at bedtime. 2 Active azelastine-flut icasone 137-50 mcg/spray Sweet Water, Non-Aerosol SPRAY 1 SPRAY(S) INTRANASALLY TWICE DAILY 2 Active Multivitamins-C p-Rwob-Pfgihvlw Tablet Take 1 Tablet by mouth daily. Active aspirin 325 mg tablet Take 325 mg by mouth daily. Active naloxone (NARCAN) 4 mg/spray Sweet Water, Non-Aerosol EMERGENCY USE ONLY: Administer 1 spray (4 mg) in one nostril one time. May repeat in alternating nostrils every 2-3 min until responsive or EMS arrives. 2 Each 3 08/14/2023 12:20 PM MACHINE MAINTENANCE MECHANIC 4 Active allopurinoL (ZYLOPRIM) 100 mg tablet Take 100 mg by mouth daily. 4 Active benzonatate (TESSALON) 100 mg capsule Take 100 mg by mouth. 4 Active cholecalciferol , vitamin D3, 5,000 unit 3 Active Active Problems Problem Noted Date Diagnosed Date Hypersomnia 05/02/2023 Overview (06/25/2023): Last Assessment & Plan: The patient still has hypersomnia but wants to practice good sleep hygiene and standardize his sleep-wake cycles prior to starting any stimulant therapy. He will follow up here in 3 months. Inflamed skin tag 01/14/2023 Overview (06/25/2023): Last Assessment & Plan: Patient has an irritated/inflammed skin tag. Would [...] call immediately for any problems. Await pathology. Elevated uric acid in blood 05/27/2022 Overview (10/09/2022): Last Assessment & Plan: Continue to monitor uric acid level. He was started on allopurinol by Dr. Morejon but noted a dry cough so he discontinued it. Has follow-up next week to discuss further Paroxysmal atrial fibrillation 05/20/2021 Overview (10/09/2022): Last Assessment & Plan: Continue per Cardiology. Last Assessment & Plan: Continue per Cardiology. PLMD (periodic limb movement disorder) Overview (10/09/2022): Last Assessment & Plan: The patient's limbs are under good control with gabapentin 300 mg at bedtime and clonazepam 0.5 mg at bedtime. I have given him a 3 month supply the clonazepam with 3 refills. Low libido 01/31/2020 Overview (10/09/2022): Last Assessment & Plan: Refer to URology Adverse effect of angiotensin-converting enzyme inhibitor 01/05/2019 Obesity with body mass index 30 or greater 01/05 Overview (10/09/2022): Last Assessment & Plan: Obesity is unchanged. Discussed the patient's BMI. The BMI is above average. BMI management plan is completed. BMI Follow-up includes: nutrition counseling, exercise counseling and education provided. Aortic root dilatation 07/28/2018 History of kidney stones 07/15/2018 Primary insomnia 07/15/2018 Overview (10/09/2022): Last Assessment & Plan: Continue per Dr. Sandy. He is still using the CPAP. He was switched to gabapentin and clonazepam and states it is working wonderful for him. History of atrial fibrillation 07/15/2018 Hyperlipidemia 06/19/2018 Overview (10/09/2022): Last Assessment & Plan: Encouraged patient to follow low fat/low chol diet like the Mediterranean diet. Increase good fats in the diet. Increase exercise. Monitor labs as needed. Continue atorvastatin Palpitations 06/19/2018 PVC (premature ventricular contraction) 06/19/20 18 Essential hypertension 06/20/2017 Overview (10/09/2022): Hypertension Last Assessment & Plan: Bp is stable/in acceptable range for any co-morbidities. Encouraged to limit sodium intake and exercise for weight control. Continue per Dr. Ramirez Hypertension Last Assessment & Plan: Bp is stable/in acceptable range for any co-morbidities. Encouraged to limit sodium intake and exercise for weight control. Gastro-esophageal reflux disease without esophag itis 01/28/2017 Overview (10/09/2022): Last Assessment & Plan: Continue PPI p.r.n. Obstructive sleep apnea 01/28/2017 Overview (10/09/2022): Last Assessment & Plan: The patient continues to benefit from CPAP at 14 cm water pressure. His DME supplier is [employer]. He will follow-up with me in 1 year. Angioedema 09/08/2015 Chronic urticaria 09/08/2015 Overview (10/09/2022): Last Assessment & Plan: Has continued same plan per the novelties sales representative in his symptoms are stable. Last Assessment & Plan: Has continued same plan per the novelties sales representative in his symptoms are stable. Hypothyroidism 01/20/2013 Overview (10/09/2022): HYPOTHYROIDISM NOS HYPOTHYROIDISM NOS Last Assessment & Plan: Continue to monitor labs. Continue levothyroxine. Last Assessment & Plan: Continue levothyroxine. Monitor labs. He is on 100 mcg and 88 mcg taking 1 of each daily for a total of 188 mcg daily HYPOTHYROIDISM NOS Last Assessment & Plan: Continue to monitor labs. Continue levothyroxine. Resolved Problems Problem Noted Date Diagnosed Date Resolved Date Acute cough 07/22/2023 08/27/2023 Overview (08/27/2023): Last Assessment & Plan: Patient just getting over flu A. Has [...] provided he plans to get it at [facility] in [place]. Annual physical exam 01/14/2023 024 Overview (06/25/2023): Last Assessment & Plan: Encouraged healthy lifestyle, good nutrition and exercise. Encouraged Calcium and Vitamin D and weight bearing exercise for bone health. Reviewed immunizations Reviewed age appropirate screenings. Acute non-recurrent frontal sinusitis 08/18/2021 10/10/2022 Overview (10/09/2022): Last Assessment & Plan: Start antibiotic, antihistamine (Claritin OR Zyrtec), Mucinex 12hour and Steroid nasal spray (Flonase). Push fluids. Rest. Supportive care. If sxs worsen or don\'t improve, pt is to followup in the office. Flu vaccine need 05/20/2021 10/10/2022 Overview (10/09/2022): Last Assessment & Plan: Flu vaccine updated in the office today Abdominal bloating 11/17/2020 3 Overview (10/09/2022): Last Assessment & Plan: He declines to report to er now for further evaluation and treatment. Will arrange for stat ct and labs, will notify him of results as available. Will refer to gi for further discussion Intractable vomiting 11/17/2020 023 Overview (10/09/2022): Last Assessment & Plan: He declines to report to er now for further evaluation and treatment. Will arrange for stat ct and labs, will notify him of results as available. Will refer to gi for further discussion Arthralgia of both knees 10/25/202007/2023 Overview (10/09/2022): Last Assessment & Plan: I did order an iron and ferritin level. Calculus of kidney 01/28/2017 4 Status post arthroscopic benji nikko of right knee 07/25/2016 10/10/2022 Old tear of medial meniscus of right knee 07/25/2016 10/10/2022 Chronic pain of right knee 06/13/2016 0 12/11/2022 Internal derangement of right knee 06/13/2016 10/10/2022 Family History Medical History Relation Name Comments Hypertension Brother Clovis Pineda Arthritis-osteo Father Ray Edwin Cancer Father Ray Edwin Heart Disease Father Ray Edwin Relation Name Status Comments Brother Clovis Pineda Father Ray Edwin Social History Tobacco Use Types Packs/Day Years Used Date Smoking Tobacco: Never Smokeless Tobacco: Never Alcohol Use Standard Drinks/Week Comments Yes 2 (1 standard drink = 0.6 oz pur e alcohol) occasional Feeling Safe Answer Date Recorded Are you in a relationship wi th someone who hurts you emotionally and/or physically? Unable to obtain 08/14/2023 Sex and Gender Information Value Date Recorded Sex Assigned at Not on file Legal Sex Male 2:50 PM MACHINE MAINTENANCE MECHANIC Gender Identity Not on file Sexual Orientation Not on file Last Filed Vital Signs Vital Sign Reading Time Taken Comments Blood Pressure 110/78 09/24/2023 11:39 AM CDT Pulse 63 08/14/2023 12:00 PM MACHINE MAINTENANCE MECHANIC Temperature 36.4 C (97.5 F) 08/14/2023 11:39 AM MACHINE MAINTENANCE MECHANIC Respiratory Rate 20 08/14/2023 12:00 PM MACHINE MAINTENANCE MECHANIC Oxygen Saturation 93% 08/14/2023 12:00 PM MACHINE MAINTENANCE MECHANIC Inhaled Oxygen Concentration - - Weight 127.9 kg (282 lb) 09/24/2023 11:39 AM CDT Height 188 cm (6' 2) 09/24/2023 11:39 AM CDT Body Mass Index 36.21 09/24/2023 11:39 AM CDT Plan of Treatment Health Maintenance Due Date Last Done Comments HEPATITIS B VACCINES (1 of 3 - 19+ 3-dose series) 1988 COLORECTAL SCREENING 2014 Colorectal Cancer Screening 2014 FIT-DNA Q 3 years 2014 FIT/FOBT Q 1 year 2014 Flex Sig/CT Colonography Q 5 years 2014 COVID-19 Vaccine (2023-2 5 season) 2024 04/28/2021, 08/27/2020, 07/30/2020, Additional history exists INFLUENZA VACCINE (#1) 2025 , 04/17/2022, 04/17/2021, Additional history exists DTAP/TDAP/TD VACCINES (2 - T d or Tdap) 06/24/2025 06/24/2015 ZOSTER VACCINE Completed 02/26/2022, 11/29/2021 Insurance [facility] [employer] Advance Directives For more information, please contact: [phone] * Full Code (Latest Code Status on File) Date Activated Date Inactivated Comments 08/14/2023 7:41 AM 08/14/2023 2:39 PM * Full Code Date Activated Date Inactivated Comments 09/26/2022 11:50 AM 09/26/2022 7:19 PM Care Teams Manager Planning Relationship Specialty Start Date End Date Carmen Lindsay PA-C [address] [place] [address] [address], [place] [id number] PCP - General Physician Private Security Guard 09/29/21
--- OUTSIDE RECORDS SUMMARY | 2025-01-05 15:17 | XMS_ITS | Clinical Summary ---
Author Organization [facility] Address [address] [place] [id number] Care Team Providers Care Hose Coupling Joiner Name Role Phone Unavailable Primary Care Provider Unavailabl e Social History Tobacco Use Types Packs/Day Years Used Date Smoking Tobacco: Never Assessed Sex and Gender Information Value Date Recorded Sex Assigned at Not on file Legal Sex Male 5:32 PM CDT Gender Identity Not on file Sexual Orientation Not on file Last Filed Vital Signs Vital Sign Reading Time Taken Comments Blood Pressure 140/84 08/17/2012 8:46 AM MANAGER SMALL BUSINESS Pulse 91 08/17/2012 8:46 AM MANAGER [employer] BUSINESS Temperature - - Respiratory Rate - - Oxygen Saturation - - Inhaled Oxygen Concentration - - Weight 114.8 kg (253 lb) 08/17/2012 8:46 AM MANAGER SMALL BUSINESS Height - - Body Mass Index - - Plan of Treatment Health Maintenance Due Date Last Done Comments Colorectal Cancer Screening Colonoscopy (10 Years) 1969 Annual Physical 1972 Hepatitis C 1987 DTaP, Tdap and Td Vaccines ( 1 - Tdap) 1988 Hepatitis B Vaccines (1 of 3 - 19+ 3-dose series) 1988 Pneumococcal Vaccine: 50+ Ye ars (1 of 1 - PCV) 2019 Zoster Vaccines (1 of 2) 2019 COVID-19 Vaccine ( - 2023-2 5 season) 2024 Meningococcal B Vaccine Aged Out No l onger eligible based on patient's age to complete this topic Meningococcal Vaccine Aged Out No joe vadim eligible based on patient's age to complete this topic RSV Immunizations Under 20 Months Aged Out No longer eligible based on patient's age to complete this topic
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
== END 2025-01-05 15:14 | disposition home or self-care (01) ==
PROVIDERS: PCP Physician Assistant; Visit Provider Internal Medicine Nephrology
DX: N20.0 Calculus of kidney (principal)
CPT/HCPCS: 74018

== ENCOUNTER 2025-04-05 15:27 | Outpatient (CLI) | payer BC, SELFPAY ==
--- NOTE | ~2025-04-05 | CT_ITS ---
EXAMINATION:CT diagnostic chest wo con DATE: 04/05/2025 15:54 INDICATION: Aortic root dilatation. TECHNIQUE: Computed tomography (CT) of the chest was performed without intravenous contrast. Automated exposure control and iterative reconstruction technique were employed. The dose-length product (DLP) was 519.66 mGy-cm. COMPARISON: Chest CT 01/29/2024 FINDINGS: The lungs demonstrate mild atelectasis. There is a 5 mm nodule at left major fissure without change, likely benign. The heart size is normal. There are coronary artery calcifications. No pericardial effusion. The aorta measures 4.9 cm at the sinuses of Valsalva, 4.4 cm at the sinotubular junction, 4.1 cm at the mid ascending aorta, 2.7 cm at the aortic isthmus, and 2.6 cm at the mid descending aorta. There is a small sliding hiatal hernia. There are changes of cholecystectomy. There is mild thoracic spondylosis. There is mild chronic anterior wedging of T12 vertebral body. IMPRESSION: 1. Ectasia of ascending aorta measuring 4.9 cm at the sinuses of Valsalva. Reviewed, dictated and finalized at location E.
--- OUTSIDE RECORDS SUMMARY | 2025-04-05 16:04 | XMS_ITS | Clinical Summary ---
Author Organization [facility] Address [address] [place] [address] Care Team Providers Care Cra Officer Name Role Phone Unavailable Primary Care Provider [...] Comments Blood Pressure 140/84 08/17/2012 8:46 AM HOSPICE CARE TRANSITIONS COORDINATOR Pulse 91 08/17/2012 8:46 AM HOSPICE CARE TRANSITIONS COORDINATOR Temperature - - Respiratory Rate - - Oxygen Saturation - - Inhaled Oxygen Concentration - - Weight 114.8 kg (253 lb) 08/17/2012 8:46 AM HOSPICE CARE TRANSITIONS COORDINATOR Height - - Body Mass Index - [...] Vaccines (1 of 2) 2019 COVID-19 Vaccine (1 - 2023-2 5 season) 2025 Influenza Adult (#1) 2025 Meningococcal B Vaccine Aged Out No l onger eligible based on patient's age to complete this topic Meningococcal Vaccine Aged Out No joe vadim eligible based on patient's age to complete this topic RSV Immunizations Under 20 Months Aged Out No longer eligible based on patient's age to complete this topic
--- OUTSIDE RECORDS SUMMARY | 2025-04-05 16:05 | XMS_ITS | Clinical Summary ---
Author Organization [facility] Address [address] [place] [address] Care Team Providers Care Multiple Tube Winding Machine Operator Name Role Phone Carmen Lindsay PA-C Primary Care Provider [phone] Allergies Active Allergy Reactions Criticality Noted Date [...] bedtime. 2 Active azelastine-flut icasone 137-50 mcg/spray [place], Non-Aerosol SPRAY 1 SPRAY(S) INTRANASALLY TWICE DAILY 2 Active Multivitamins-C l-Fzxu-Jxycrdzz Tablet Take 1 Tablet by mouth daily. Active aspirin 325 mg tablet Take 325 mg by mouth daily. Active naloxone (NARCAN) 4 mg/spray [place], Non-Aerosol EMERGENCY USE ONLY: Administer 1 spray (4 mg) in one nostril one time. May repeat in alternating nostrils every 2-3 min until responsive or EMS arrives. 2 Each 3 08/14/2023 12:20 PM SWAGING MACHINE ADJUSTER 4 Active allopurinoL (ZYLOPRIM) 100 mg tablet [...] Plan: Has continued same plan per the manifold operator in his symptoms are stable. Last Assessment & Plan: Has continued same plan per the manifold operator in his symptoms are stable. Hypothyroidism 01/20/2013 [...] provided he plans to get it at [facility] in [place]. Annual physical exam 01/14/2023 024 Overview (06/25/2023): [...] on file Legal Sex Male 2:50 PM SWAGING MACHINE ADJUSTER Gender Identity Not on file Sexual Orientation Not on file Last Filed Vital Signs Vital Sign Reading Time Taken Comments Blood Pressure 110/78 09/24/2023 11:39 AM CDT Pulse 63 08/14/2023 12:00 PM SWAGING MACHINE ADJUSTER Temperature 36.4 C (97.5 F) 08/14/2023 11:39 AM SWAGING MACHINE ADJUSTER Respiratory Rate 20 08/14/2023 12:00 PM SWAGING MACHINE ADJUSTER Oxygen Saturation 93% 08/14/2023 12:00 PM SWAGING MACHINE ADJUSTER Inhaled Oxygen Concentration - - Weight 127.9 [...] Flex Sig/CT Colonography Q 5 years 2014 INFLUENZA VACCINE (#1) 2025 , 04/17/2022, 04/17/2021, Additional history exists COVID-19 Vaccine (2024-2 6 season) 2025 04/28/2021, 08/27/2020, 07/30/2020, Additional history exists DTAP/TDAP/TD VACCINES (2 - T d or Tdap) 06/24/2025 06/24/2015 ZOSTER VACCINE Completed 02/26/2022, 11/29/2021 Insurance [facility] [employer] Advance Directives For more information, please contact: [phone] * Full Code (Latest Code Status on File) Date Activated Date Inactivated Comments 08/14/2023 7:41 AM 08/14/2023 2:39 PM * Full Code Date Activated Date Inactivated Comments 09/26/2022 11:50 AM 09/26/2022 7:19 PM Care Teams Multiple Tube Winding Machine Operator Relationship Specialty Start Date End Date Carmen Lindsay PA-C [address] [place] [address], [place] [id number] PCP - General Physician Painting Supervisor 09/29/21
--- OUTSIDE RECORDS SUMMARY | 2025-04-05 16:05 | XMS_ITS | Clinical Summary ---
Author Organization [facility] Address [address] [place] [id number] Phone Care Team Providers Care Center Customer Service Associate Name Role Phone Carmen Lindsay Primary Care Provider Unav ailable Allergies Active Allergy Reactions Criticality Noted Date Comments Other Rash,Hives,Other (see comments) Medium 06/13/2016 Food dyes, red blue and yellow Propafenone Rash Medium 03/21/2019 Red Dye #40 (Allura Red) Hives Medium 06/19/2018 Tomato Hives Medium 06/19/2018 Yellow Dye #6 ([place] Yellow) Hives Medium 06/19/2018 Medications Glucosamine-Cho ndroit-Vit C-Mn (GLUCOSAMINE 1500 COMPLEX) capsule 1 daily 0 7 Active atorvastatin (LIPITOR) 20 MG tablet 1 daily 0 9 Active aspirin EC 325 MG EC tablet 1 tablet (325 mg) orally daily 0 7 Active [place]-3 Fatty Acids (FISH OIL BURP-LESS) 1000 MG [...] Last Assessment & Plan: Continue per Cardiology. Ajbylzoikoj-gpfyarmzpu-shormh inhibitor adverse reaction 01/05/2019 Body mass index [...] Plan: Has continued same plan per the nipple threader in his symptoms are stable. Hypothyroidism 01/20/2013 [...] Comments Blood Pressure 124/70 05/28/2022 3:07 PM TECHNICAL BUSINESS SYSTEMS ANALYST Pulse 72 05/28/2022 3:07 PM TECHNICAL BUSINESS SYSTEMS ANALYST Temperature 36.3 C (97.3 F) 05/28/2022 3:07 PM TECHNICAL BUSINESS SYSTEMS ANALYST Respiratory Rate - - Oxygen Saturation - - Inhaled Oxygen Concentration - - Weight 132 kg (291 lb) 05/28/2022 3:07 PM TECHNICAL BUSINESS SYSTEMS ANALYST Height 188 cm (6' 2) 05/28/2022 3:07 PM TECHNICAL BUSINESS SYSTEMS ANALYST Body Mass Index 37.36 05/28/2022 3:07 PM TECHNICAL BUSINESS SYSTEMS ANALYST Plan of Treatment Health Maintenance Due Date Last Done Comments COVID-19 Vaccine (2024-2 6 season) 2025 04/28/2021, 08/27/2020, 07/30/2020, Additional history exists Influenza Vaccine (#1) 2025 2, 04/17/2021, 04/18/2020, Additional history exists Insurance [facility] Care Teams Center Customer Service Associate Relationship Specialty Start Date End Date Carmen Lindsay PA PCP - General Family Medicine 04/08/19
--- OUTSIDE RECORDS SUMMARY | 2025-04-05 16:05 | XMS_ITS | Encounter Summary ---
Author Organization [facility] Facility Care Team Providers Care Food Mobile Driver Name Role Phone Carmen Lindsay Primary Care Provider [phone] Carmen Lindsay Primary Care Provider [phone] Carmen Lindsay Unavailable [phone] Jhonny Colvin MD Unavailable Baldemar Ramirez MD Unavailable Joss Lopez MD Unavailable [phone] Encounter Details Date Type Department Care Team (Latest Contact Info) Description 12/30/2017 Orders Only [facility] CLINCONV ProviderEsmer MD [facility] [place] [address] Social History Tobacco Use Types Packs/Day Years Used Date Smoking Tobacco: Never Alcohol Use Standard Drinks/Week Comments Yes 0 (1 standard drink = 0.6 oz pur e alcohol) Sex and Gender Information Value Date Recorded Sex Assigned at Not on file Legal Sex Male 10:51 AM GAUGE MAKER APPRENTICE Gender Identity Male 02/07/2021 12:37 PM CDT [...] COVID: Suspected 07/18/2023 07/18/2023 07/18/2023 9:11 AM GAUGE MAKER APPRENTICE COVID: Suspected 07/18/2023 07/18/2023 07/18/2023 2:55 PM GAUGE MAKER APPRENTICE Influenza, adult 07/18/2023 07/18/2023 07/25/2023 3:05 AM GAUGE MAKER APPRENTICE documented as of this encounter Care Teams Food Mobile Driver Relationship Specialty Start Date End Date Carmen Lindsay PA [address] [place] [address] PCP - General Internal Medicine 07/28/18 07/25/20 Carmen Lindsay PA [address] [place] [address] PCP - General 07/26/20 Carmen Lindsay PA [address] [place] [address] Internal Medicine 07/26/20 [place] [id number] [address] [facility] [address], [place] [id number] Consulting Physician Endocrinology Diabetes & Metabolism 12/31/18 [place] [id number] [address] Consulting Physician Cardiology 12/31/18 [place] [id number] [address] Consulting Physician Urology 12/31/18 documented as of this encounter
--- OUTSIDE RECORDS SUMMARY | 2025-04-05 16:05 | XMS_ITS | Encounter Summary ---
Author Organization [facility] Facility Care Team Providers Care Fire Hazard Inspector Name Role Phone Carmen Lindsay Primary Care Provider [phone] Carmen Lindsay Primary Care Provider [phone]- [phone] Carmen Lindsay Unavailable [phone] Jhonny Colvin MD Unavailable Baldemar Ramirez MD Unavailable [phone] Joss Lopez MD Unavailable [phone] Encounter Details Date Type Department Care Team (Latest Contact Info) Description 11/03/2017 Orders Only [facility] CLINCONV ProviderEsmer MD [facility] [place] [address] Social History Tobacco Use Types Packs/Day Years Used Date Smoking Tobacco: Never Alcohol Use Standard Drinks/Week Comments Yes 0 (1 standard drink = 0.6 oz pur e alcohol) Sex and Gender Information Value Date Recorded Sex Assigned at Not on file Legal Sex Male 10:51 AM ACTING SECTION CHIEF Gender Identity Male 02/07/2021 12:37 PM CDT [...] COVID: Suspected 07/18/2023 07/18/2023 07/18/2023 9:11 AM ACTING SECTION CHIEF COVID: Suspected 07/18/2023 07/18/2023 07/18/2023 2:55 PM ACTING SECTION CHIEF Influenza, adult 07/18/2023 07/18/2023 07/25/2023 3:05 AM ACTING SECTION CHIEF documented as of this encounter Care Teams Fire Hazard Inspector Relationship Specialty Start Date End Date Carmen Lindsay PA [address] [place] [address] PCP - General Internal Medicine 07/28/18 07/25/20 Carmen Lindsay PA [address] [place] [address] PCP - General 07/26/20 Carmen Lindsay PA [address] [place] [address] Internal Medicine 07/26/20 [place] [address] [address] [facility] [address], [place] [id number] Consulting Physician Endocrinology Diabetes & Metabolism 12/31/18 [place] [address] [address] Consulting Physician Cardiology 12/31/18 [place] [address] [address] Consulting Physician Urology 12/31/18 documented as of this encounter
--- OUTSIDE RECORDS SUMMARY | 2025-04-05 16:05 | XMS_ITS | Clinical Summary ---
Author Organization [facility] Address [address] [place] [address] Care Team Providers Care Project Financial Analyst Name Role Phone Carmen Lindsay Primary Care Provider [phone] Allergies Active Allergy Reactions Criticality Noted Date [...] Take 5 mg by mouth daily. Active [place]-3 Fatty Acids (OMEGA 3 PO) Take by [...] years) (1 of 1 - PCV) 2019 PSA Discussion 2024 Influenza Immunization (#1) 02/22/202507/2023, 04/22/2023, 04/17/2022, Additional history exists SARS-COV-2 Immunization ( season) 2025 04/17/2022, 04/28/2021, 08/27/2020, Additional history exists Colonoscopy 03/26/2026 03/26/2019 Colorectal [...] Most Recently Relevant to Health Maintenance Insurance [facility] Care Teams Project Financial Analyst Relationship Specialty Start Date End Date Carmen Lindsay, PAC PCP - General Physician Locomotive Mechanic Apprentice 04/02/19
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
--- OUTSIDE RECORDS SUMMARY | 2025-04-05 16:05 | XMS_ITS | Encounter Summary ---
Author Organization [facility] Address [address] [place] [address] Phone Care Team Providers Care Personal Lines Appraiser Name Role Phone Carmen Lindsay Primary Care Provider Unav ailable Reason for Visit * Reason Comments Med Refill Encounter Details Date Type Department Care Team (Late st Contact Info) Description 05/17/[address] [facility] Nephrology and Hypertension [address], [address] [facility] [place] [place] [address] Shola Morejon MD [address], [address] [facility] [place] [address] Social History Tobacco Use Types Packs/Day Years [...] on filedocumented in this encounter Care Teams Personal Lines Appraiser Relationship Specialty Start Date End Date Carmen Lindsay PA PCP - General Family Medicine 04/08/19 documented as of this encounter
--- OUTSIDE RECORDS SUMMARY | 2025-04-05 16:05 | XMS_ITS | Encounter Summary ---
Author Organization [facility] Care Team Providers Care Film Replacement Orderer Name Role Phone Carmen Lindsay Primary Care Provider [phone] Carmen Lindsay Primary Care Provider [phone] Carmen Lindsay Unavailable [phone] Jhonny Colvin MD Unavailable Baldemar Ramirez MD Unavailable Joss Lopez MD Unavailable Encounter Details Date Type Department Care Team (Latest Contact Info) Description 01/27/2018 Orders Only [facility] ProviderEsmer MD [facility] [place] [address] Social History Tobacco Use Types Packs/Day Years Used Date Smoking Tobacco: Never Alcohol Use Standard Drinks/Week Comments Yes 0 (1 standard drink = 0.6 oz pur e alcohol) Sex and Gender Information Value Date Recorded Sex Assigned at Not on file Legal 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 Gender Identity Male 02/07/2021 12:37 PM CDT [...] COVID: Suspected 07/18/2023 07/18/2023 07/18/2023 9:11 AM SHIFT PRODUCTION SUPERVISOR COVID: Suspected 07/18/2023 07/18/2023 07/18/2023 2:55 PM SHIFT PRODUCTION SUPERVISOR Influenza, adult 07/18/2023 07/18/2023 07/25/2023 3:05 AM SHIFT PRODUCTION SUPERVISOR documented as of this encounter Care Teams Film Replacement Orderer Relationship Specialty Start Date End Date Carmen Lindsay PA [address] [place] [address] PCP - General Internal Medicine 07/28/18 07/25/20 Carmen Lindsay PA [address] [place] [address] PCP - General 07/26/20 Carmen Lindsay PA [address] [place] [address] Internal Medicine 07/26/20 [place] [address] [address] [facility] [address], [place] [id number] Consulting Physician Endocrinology Diabetes & Metabolism 12/31/18 [place] [address] [address] Consulting Physician Cardiology 12/31/18 [place] [address] [address] [address] Consulting Physician Urology 12/31/18 documented as of this encounter
--- OUTSIDE RECORDS SUMMARY | 2025-04-05 16:05 | XMS_ITS | Encounter Summary ---
Author Organization [facility] Healthcare Address [address] [place] [address] Care Team Providers Care Guard Lieutenant Name Role Phone Carmen Lindsay Primary Care Provider [phone] Carmen Lindsay Unavailable Jhonny Colvin MD Unavailable Baldemar Ramirez MD Unavailable [phone] Joss Lopez MD Unavailable Encounter Details Date Type Department Care Team (Late st Contact Info) Description 01/05/2025 Orders Only [facility] Health Information Management [address] [place] [address] Scanning, Provider Social History Tobacco Use [...] on file Legal 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 Gender Identity Male 02/07/2021 12:37 PM CDT Sexual Orientation Straight 02/07/2021 12 :37 PM CDT 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 file Not on file Not on file documented as of this encounter Plan of Treatment Not on file documented as of this encounter Procedures Procedure Name Priority Date/Time Associated Diagnosis Comments SCAN - RADIOLOGY/IMAGING 01/05/2025 documented in this encounter Results * SCAN - RADIOLOGY/IMAGING (01/05/2025) Anatomical Region Laterality Modality Other us Provider Scanning Final Result documented in this encounter Visit Diagnoses Not on filedocumented in this encounter Care Teams Guard Lieutenant Relationship Specialty Start Date End Date Carmen Lindsay PA [address] [place] [address] PCP - General 07/26/20 Carmen Lindsay PA [address] [place] [address] Internal Medicine 07/26/20 [place] [address] [address] Consulting Physician Endocrinology Diabetes & Metabolism 12/31/18 [place] [address] [address] Consulting Physician Cardiology 12/31/18 [place] [address] [address] Consulting Physician Urology 12/31/18 documented as of this encounter
== END 2025-04-05 15:28 | disposition home or self-care (01) ==
PROVIDERS: PCP Physician Assistant; Visit Provider Internal Medicine Cardiovascular Disease
DX: I77.810 Thoracic aortic ectasia (principal)
CPT/HCPCS: 71250

== ENCOUNTER 2025-04-28 07:23 | Outpatient (CLI) | payer BC, SELFPAY ==
--- NOTE | ~2025-04-28 | CT_ITS ---
Exam: CT chest with contrast Clinical History: [Aortic root dilatation ] Comparison: [ Chest CT 04/05/2025] Technique: Multiple axial CT images of the chest with IV contrast. Sagittal and coronal reformatted images were obtained. FINDINGS: Lungs and pleura: [ No pneumothorax. No pleural effusion. No pulmonary mass. There are a few small dependent groundglass opacities in both lungs.] Mediastinum and pulmonary dm: [ No mass or adenopathy.] Axillary/intramammary and supraclavicular: [ No mass or adenopathy.] Heart and great vessels: [ Heart is mildly enlarged..[ [ No pericardial effusion.] Redemonstration of the ectatic thoracic aorta similar to the prior study from 04/05/2025. Chest Wall: [ Unremarkable.] Upper Abdomen: Cholecystectomy clips. Osseous structures: [ No acute fracture or destructive lesion.] [ Multilevel degenerative change in the visualized spine.] Additional findings: [ None of significance.] IMPRESSION: 1. The aorta is similar to the study from 04/05/2025 with the ascending aorta measuring 4.9 cm at the sinuses of Valsalva. 2. There are a few small dependent groundglass opacities in both lungs. Differential includes atelectasis or an inflammatory/infectious process. Reviewed, dictated and finalized at location Q. SURE CONTROLLER IMPRESSION: 1. The aorta is similar to the study from 04/05/2025 with the ascending aorta m easuring 4.9 cm at the sinuses of Valsalva. 2. There are a few small dependent groundglass opacities in both lungs. Differe ntial includes atelectasis or an inflammatory/infectious process.
--- OUTSIDE RECORDS SUMMARY | 2025-04-28 07:27 | XMS_ITS | Encounter Summary ---
Author Organization [facility] Healthcare Address [address] [place] [address] Care Team Providers Care Supervisor Plate Pasting Name Role Phone Carmen Lindsay Primary Care Provider [phone] Carmen Lindsay Unavailable [phone] Jhonny Colvin MD Unavailable Baldemar Ramirez MD Unavailable [phone] Joss Lopez MD Unavailable [phone] Encounter Details Date Type Department Care Team (Late st Contact Info) Description 01/05/2025 Orders Only [facility] Health Information Management [address] [place] [id number] Scanning, Provider Social History Tobacco Use [...] on file Legal Sex Male 10: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 HELPER Gender Identity Male 02/07/2021 12:37 PM CDT Sexual Orientation Straight 02/07/2021 12 :37 PM CDT 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 Not on file Not [...] on filedocumented in this encounter Care Teams Supervisor Plate Pasting Relationship Specialty Start Date End Date Carmen Lindsay PA [address] [place] [address] PCP - General 07/26/20 Carmen Lindsay PA [address] [place] [address] Internal Medicine 07/26/20 [place] [id number] [address] Consulting Physician Endocrinology Diabetes & Metabolism 12/31/18 [place] [address] [address] Consulting Physician Cardiology 12/31/18 [place] [address] [address] Consulting Physician Urology 12/31/18 documented as of this encounter
--- OUTSIDE RECORDS SUMMARY | 2025-04-28 07:27 | XMS_ITS | Clinical Summary ---
Author Organization [facility] Address [address] [place] [address] Care Team Providers Care Music Engraver Name Role Phone Unavailable Primary Care Provider [...] Comments Blood Pressure 140/84 08/17/2012 8:46 AM FITTING ROOM ATTENDANT Pulse 91 08/17/2012 8:46 AM FITTING ROOM ATTENDANT Temperature - - Respiratory Rate - - Oxygen Saturation - - Inhaled Oxygen Concentration - - Weight 114.8 kg (253 lb) 08/17/2012 8:46 AM FITTING ROOM ATTENDANT Height - - Body Mass Index - [...] of 2) 2019 COVID-19 Vaccine ( - 2024-2 6 season) 2025 Influenza Adult (#1) 2025 Hepatitis A Vaccines Aged Out No long er eligible based on patient's age to complete this topic Meningococcal B Vaccine Aged Out No l onger eligible based on patient's age to complete this topic Meningococcal Vaccine Aged Out No joe vadim eligible based on patient's age to complete this topic RSV Immunizations Under 20 Months Aged Out No longer eligible based on patient's age to complete this topic
--- OUTSIDE RECORDS SUMMARY | 2025-04-28 07:28 | XMS_ITS | Encounter Summary ---
Author Organization [facility] Care Team Providers Care Relief Salesperson Name Role Phone Carmen Lindsay Primary Care Provider [phone] Carmen Lindsay Primary Care Provider [phone] Carmen Lindsay Unavailable [phone] Jhonny Colvin MD Unavailable Baldemar Ramirez MD Unavailable Joss Lopez MD Unavailable [phone] Encounter Details Date Type Department Care Team (Latest Contact Info) Description 01/27/2018 Orders Only [facility] ProviderEsmer MD [facility] [place] [address] Social History Tobacco Use Types Packs/Day Years Used Date Smoking Tobacco: Never Alcohol Use Standard Drinks/Week Comments Yes 0 (1 standard drink = 0.6 oz pur e alcohol) Sex and Gender Information Value Date Recorded Sex Assigned at Not on file Legal Sex Male 10:51 AM EXAMINATION SCORER Gender Identity Male 02/07/2021 12:37 PM CDT [...] COVID: Suspected 07/18/2023 07/18/2023 07/18/2023 9:11 AM EXAMINATION SCORER COVID: Suspected 07/18/2023 07/18/2023 07/18/2023 2:55 PM EXAMINATION SCORER Influenza, adult 07/18/2023 07/18/2023 07/25/2023 3:05 AM EXAMINATION SCORER documented as of this encounter Care Teams Relief Salesperson Relationship Specialty Start Date End Date Carmen Lindsay PA [address] [place] [address] PCP - General Internal Medicine 07/28/18 07/25/20 Carmen Lindsay PA [address] [place] [address] PCP - General 07/26/20 Carmen Lindsay PA [address] [place] [address] Internal Medicine 07/26/20 [place] [address] [facility] [address], [place] [id number] Consulting Physician Endocrinology Diabetes & Metabolism 12/31/18 [place] [address] [address] Consulting Physician Cardiology 12/31/18 [place] [address] [address] Consulting Physician Urology 12/31/18 documented as of this encounter
--- OUTSIDE RECORDS SUMMARY | 2025-04-28 07:28 | XMS_ITS | Clinical Summary ---
Author Organization [facility] Address [address] [place] [address] Phone Care Team Providers Care Civil Preparedness Coordinator Name Role Phone Carmen Lindsay Primary Care Provider Unav ailable Allergies Active Allergy Reactions Criticality Noted Date Comments Other Rash,Hives,Other (see comments) Medium 06/13/2016 Food dyes, red blue and yellow Propafenone Rash Medium 03/21/2019 Red Dye #40 (Allura Red) Hives Medium 06/19/2018 Tomato Hives Medium 06/19/2018 Yellow Dye #6 ([place] Yellow) Hives Medium 06/19/2018 Medications Glucosamine-Cho ndroit-Vit C-Mn (GLUCOSAMINE 1500 COMPLEX) capsule 1 daily 0 7 Active atorvastatin (LIPITOR) 20 MG tablet 1 daily 0 9 Active aspirin EC 325 MG EC tablet 1 tablet (325 mg) orally daily 0 7 Active [place]-3 Fatty Acids (FISH OIL BURP-LESS) 1000 MG [...] Last Assessment & Plan: Continue per Cardiology. Mbxtvxfxqam-lcrxmteuut-aqrxbb inhibitor adverse reaction 01/05/2019 Body mass index [...] Plan: Has continued same plan per the cert pharmacy tech in his symptoms are stable. Hypothyroidism 01/20/2013 [...] Comments Blood Pressure 124/70 05/28/2022 3:07 PM CREW CAR DRIVER Pulse 72 05/28/2022 3:07 PM CREW CAR DRIVER Temperature 36.3 C (97.3 F) 05/28/2022 3:07 PM CREW CAR DRIVER Respiratory Rate - - Oxygen Saturation - - Inhaled Oxygen Concentration - - Weight 132 kg (291 lb) 05/28/2022 3:07 PM CREW CAR DRIVER Height 188 cm (6' 2) 05/28/2022 3:07 PM CREW CAR DRIVER Body Mass Index 37.36 05/28/2022 3:07 PM CREW CAR DRIVER Plan of Treatment Health Maintenance Due Date Last Done Comments COVID-19 Vaccine (2024-2 6 season) 2025 04/28/2021, 08/27/2020, 07/30/2020, Additional history exists Influenza Vaccine (#1) 2025 2, 04/17/2021, 04/18/2020, Additional history exists Insurance [facility] Care Teams Civil Preparedness Coordinator Relationship Specialty Start Date End Date Carmen Lindsay PA PCP - General Family Medicine 04/08/19
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
--- OUTSIDE RECORDS SUMMARY | 2025-04-28 07:28 | XMS_ITS | Encounter Summary ---
Author Organization [facility] Facility Care Team Providers Care Inspector Multifocal Lens Name Role Phone Carmen Lindsay Primary Care Provider [phone] Carmen Lindsay Primary Care Provider [phone] Carmen Lindsay Unavailable [phone] Jhonny Colvin MD Unavailable Baldemar Ramirez MD Unavailable Joss Lopez MD Unavailable [phone] Encounter Details Date Type Department Care Team (Latest Contact Info) Description 11/03/2017 Orders Only [facility] ProviderEsmer MD [facility] [place] [address] Social History Tobacco Use Types Packs/Day Years Used Date Smoking Tobacco: Never Alcohol Use Standard Drinks/Week Comments Yes 0 (1 standard drink = 0.6 oz pur e alcohol) Sex and Gender Information Value Date Recorded Sex Assigned at Not on file Legal Sex Male 10:51 AM MATERIAL LISTER Gender Identity Male 02/07/2021 12:37 PM CDT [...] COVID: Suspected 07/18/2023 07/18/2023 07/18/2023 9:11 AM MATERIAL LISTER COVID: Suspected 07/18/2023 07/18/2023 07/18/2023 2:55 PM MATERIAL LISTER Influenza, adult 07/18/2023 07/18/2023 07/25/2023 3:05 AM MATERIAL LISTER documented as of this encounter Care Teams Inspector Multifocal Lens Relationship Specialty Start Date End Date Carmen Lindsay PA [address] [place] [address] PCP - General Internal Medicine 07/28/18 07/25/20 Carmen Lindsay PA [address] [place] [address] PCP - General 07/26/20 Carmen Lindsay PA [address] [place] [address] Internal Medicine 07/26/20 [place] [address] [address] [facility] [address], [place] [id number] Consulting Physician Endocrinology Diabetes & Metabolism 12/31/18 [place] [address] [address] Consulting Physician Cardiology 12/31/18 [place] [address] [address] Consulting Physician Urology 12/31/18 documented as of this encounter
--- OUTSIDE RECORDS SUMMARY | 2025-04-28 07:28 | XMS_ITS | Clinical Summary ---
Author Organization [facility] Address [address] [place] [address] Care Team Providers Care Personal Financial Planner Name Role Phone Carmen Lindsay PA-C Primary Care Provider [phone] Allergies Active Allergy Reactions Criticality Noted Date [...] bedtime. 2 Active azelastine-flut icasone 137-50 mcg/spray [place], Non-Aerosol SPRAY 1 SPRAY(S) INTRANASALLY TWICE DAILY 2 Active Multivitamins-C m-Onbo-Nbchberw Tablet Take 1 Tablet by mouth daily. Active aspirin 325 mg tablet Take 325 mg by mouth daily. Active naloxone (NARCAN) 4 mg/spray [place], Non-Aerosol EMERGENCY USE ONLY: Administer 1 spray (4 mg) in one nostril one time. May repeat in alternating nostrils every 2-3 min until responsive or EMS arrives. 2 Each 3 08/14/2023 12:20 PM PIT SLAGMAN 4 Active allopurinoL (ZYLOPRIM) 100 mg tablet [...] Plan: Has continued same plan per the certified orthotic fitter in his symptoms are stable. Last Assessment & Plan: Has continued same plan per the certified orthotic fitter in his symptoms are stable. Hypothyroidism 01/20/2013 [...] provided he plans to get it at [facility] in [place]. Annual physical exam 01/14/2023 024 Overview (06/25/2023): [...] on file Legal Sex Male 2:50 PM PIT SLAGMAN Gender Identity Not on file Sexual Orientation Not on file Last Filed Vital Signs Vital Sign Reading Time Taken Comments Blood Pressure 110/78 09/24/2023 11:39 AM CDT Pulse 63 08/14/2023 12:00 PM PIT SLAGMAN Temperature 36.4 C (97.5 F) 08/14/2023 11:39 AM PIT SLAGMAN Respiratory Rate 20 08/14/2023 12:00 PM PIT SLAGMAN Oxygen Saturation 93% 08/14/2023 12:00 PM PIT SLAGMAN Inhaled Oxygen Concentration - - Weight 127.9 [...] 06/24/2015 ZOSTER VACCINE Completed 02/26/2022, 11/29/2021 Insurance [facility] [employer] [facility] [employer] Advance Directives For more information, please contact: [phone] * Full Code (Latest Code Status on File) Date Activated Date Inactivated Comments 08/14/2023 7:41 AM 08/14/2023 2:39 PM * Full Code Date Activated Date Inactivated Comments 09/26/2022 11:50 AM 09/26/2022 7:19 PM Care Teams Personal Financial Planner Relationship Specialty Start Date End Date Carmen Lindsay PA-C [address] [place] [address], [place] [phone] PCP - General Physician Sustainment Logistics Analyst 09/29/21
--- OUTSIDE RECORDS SUMMARY | 2025-04-28 07:28 | XMS_ITS | Encounter Summary ---
Author Organization [facility] Facility Care Team Providers Care Glass Robot Operator Name Role Phone Carmen Lindsay Primary Care Provider [phone] Carmen Lindsay Primary Care Provider [phone] Carmen Lindsay Unavailable [phone] Jhonny Colvin MD Unavailable Baldemar Ramirez MD Unavailable Joss Lopez MD Unavailable [phone] Encounter Details Date Type Department Care Team (Latest Contact Info) Description 12/30/2017 Orders Only [facility] CLINCONV ProviderEsmer MD [facility] [place] [address] Social History Tobacco Use Types Packs/Day Years Used Date Smoking Tobacco: Never Alcohol Use Standard Drinks/Week Comments Yes 0 (1 standard drink = 0.6 oz pur e alcohol) Sex and Gender Information Value Date Recorded Sex Assigned at Not on file Legal Sex Male 10:51 AM TELEPHONE CLERK Gender Identity Male 02/07/2021 12:37 PM CDT [...] COVID: Suspected 07/18/2023 07/18/2023 07/18/2023 9:11 AM TELEPHONE CLERK COVID: Suspected 07/18/2023 07/18/2023 07/18/2023 2:55 PM TELEPHONE CLERK Influenza, adult 07/18/2023 07/18/2023 07/25/2023 3:05 AM TELEPHONE CLERK documented as of this encounter Care Teams Glass Robot Operator Relationship Specialty Start Date End Date Carmen Lindsay PA [address] [place] [address] PCP - General Internal Medicine 07/28/18 07/25/20 Carmen Lindsay PA [address] [place] [address] PCP - General 07/26/20 Carmen Lindsay PA [address] [place] [address] Internal Medicine 07/26/20 [place] [address] [address] [facility] [address], [place] [id number] Consulting Physician Endocrinology Diabetes & Metabolism 12/31/18 [place] [address] [address] Consulting Physician Cardiology 12/31/18 [place] [address] [address] Consulting Physician Urology 12/31/18 documented as of this encounter
--- OUTSIDE RECORDS SUMMARY | 2025-04-28 07:28 | XMS_ITS | Encounter Summary ---
Author Organization [facility] Address [address] [place] [id number] Phone Care Team Providers Care Bead Preparer Name Role Phone Carmen Lindsay Primary Care Provider Unav ailable Reason for Visit * Reason Comments Med Refill Encounter Details Date Type Department Care Team (Late st Contact Info) Description 05/17/2022 Refill [facility] Nephrology and Hypertension [address] [facility], [address] [facility] [place] [address] Shola Morejon MD [address] [facility], [address] [facility] [place] [address] Social History Tobacco Use Types Packs/Day Years [...] on filedocumented in this encounter Care Teams Bead Preparer Relationship Specialty Start Date End Date Carmen Lindsay PA PCP - General Family Medicine 04/08/19 documented as of this encounter
--- OUTSIDE RECORDS SUMMARY | 2025-04-28 07:28 | XMS_ITS | Clinical Summary ---
Author Organization [facility] Address [address] [place] [address] Care Team Providers Care Fire Production Operator Name Role Phone Carmen Lindsay Primary Care Provider [phone]- [phone] Allergies Active Allergy Reactions Criticality Noted Date [...] Take 5 mg by mouth daily. Active Speonk-3 Fatty Acids (OMEGA 3 PO) Take by [...] Most Recently Relevant to Health Maintenance Insurance [facility] Care Teams Fire Production Operator Relationship Specialty Start Date End Date Carmen Lindsay, PAC PCP - General Physician Customs Examiner 04/02/19
== END 2025-04-28 07:24 | disposition home or self-care (01) ==
PROVIDERS: PCP Physician Assistant; Visit Provider Internal Medicine Cardiovascular Disease
DX: R91.8 Other nonspecific abnormal finding of lung field (principal); I71.21 Aneurysm of the ascending aorta, without rupture
CPT/HCPCS: 71275; Q9967